=== PATIENT | male | born 1970 | race Caucasian/White ===

== ENCOUNTER 2016-12-07 08:50 | Inpatient (IN) | payer SELFPAY ==
[~2016-12-07] VITALS: Ht 188 cm; Wt 89.9 kg
[2016-12-07] VITALS (8 sets, daily range): BP systolic 122–146; BP diastolic 72–87; PULSE 95–125; RESP 16–24; TEMP 97.3–99.5; O2SAT 91–100
[2016-12-07] MEDS ORDERED: RESP: BUDESONIDE 0.5 MG/2 ML NEB NEB ONE (09:15)
[2016-12-07] MEDS ORDERED: methylPREDNISolone SOD SUCC 125 MG/2 ML VIAL IVP ONE (09:15)
[2016-12-07] MEDS: RESP: ALBUTEROL 2.5 MG/IPRATROPIUM 0.5 MG NEB (SCH) INH ×2 (09:24→09:25)
[2016-12-07 09:25] LABS: AUTOMATED NEUTROPHIL # 9.8 TH/MM3 (1.8-7.7); BASOPHIL # 0.1 TH/MM3 (0-0.2); BASOPHIL % 0.5 % (0.0-2.0); EOSINOPHIL # 0.4 TH/MM3 (0-0.4); EOSINOPHIL % 3.4 % (0.0-4.0); HEMATOCRIT 44.3 % (39.0-51.0); HEMO FLAGS DIFF FINAL; LYMPH % 11.9 % (9.0-44.0); LYMPHOCYTE # 1.5 TH/MM3 (1.0-4.8); MEAN CELL VOLUME 91.6 FL (80.0-100.0); MEAN CORPUSCULAR HGB CONC 33.8 % (32.0-36.0); MONO % 6.3 % (0.0-8.0); NEUT % 77.9 % (16.0-70.0); PLATELET COUNT 220 TH/MM3 (150-450); RED BLOOD COUNT 4.83 MIL/MM3 (4.50-5.90); RED CELL DISTRIBUTION WIDTH 13.5 % (11.6-17.2); WHITE BLOOD COUNT 12.6 TH/MM3 (4.0-11.0)
[2016-12-07] MEDS: SODIUM CHLORIDE 0.9% FLUSH 10 ML FLUSH IVF PRN ×2 (09:26→11:06)
--- NOTE | 2016-12-07 09:32 | RADRPT ---
EXAM DATE/TIME: 12/07/2016 09:13 [facility] COMPARISON: No previous studies available for comparison. INDICATIONS : Short of breath with wheezing, history of asthma. MEDICAL HISTORY : Asthma SURGICAL HISTORY : None. ENCOUNTER: Initial ACUITY: 2 days PAIN SCORE: 0/10 LOCATION: Bilateral chest FINDINGS: A single view of the chest demonstrates the lungs to be symmetrically aerated without evidence of mas s, infiltrate or effusion. The cardiomediastinal contours are unremarkable. Osseous structures are intact. CONCLUSION: No acute disease. There is no evidence of pneumonia. Ismael Eagle MD on December 07, 2016 at 9:30 Board Certified Radiologist. This report was verified electronically.
--- NOTE | 2016-12-07 09:36 | PD ---
HPI Chief Complaint: Respiratory Distress Time Seen by Provider: 09:08 Travel History International Travel<30 days: No Contact w/Intl Traveler<30days: No Traveled to known affect area: No History of Present Illness HPI Patient is a 46-year-old male presenting to the medical evaluation of shortness of breath. Patient reports a history of asthma, he states it's been out of his albuterol inhaler for 12 hours. He states that he has been "fighting this" since then. He reports wheezing, body aches, chills. He denies any nausea, vomiting, abdominal pain, headache. He does not eat normally uses albuterol inhaler often and states his asthma is well-controlled. PFSH Past Medical History Hx Anticoagulant Therapy: No Asthma: Yes Cardiovascular Problems: No Chemotherapy: No Cerebrovascular Accident: No Diabetes: No Respiratory: Yes (ASTHMA) ?: Not Past Surgical History Hysterectomy: No Social History Alcohol Use: Yes Tobacco Use: No Substance Use: No Allergies-Medications (Allergen,Severity, Reaction): Coded Allergies: No Known Allergies (Unverified , 12/07/16) Review of Systems Except as stated in HPI: all other systems reviewed are Neg General / Constitutional: Positive: Fever, Chills HENT: No: Headaches, Lightheadedness Cardiovascular: No: Chest Pain or Discomfort Respiratory: Positive: Cough, Shortness of Breath, Wheezing, Pleuritic Pain Gastrointestinal: No: Nausea, Vomiting Musculoskeletal: Positive: Myalgias Physical Exam Narrative GENERAL: Well-developed, well-nourished alert male. SKIN: Warm and dry. HEAD: Atraumatic. Normocephalic. EYES: Pupils equal and round. No scleral icterus. No injection or drainage. ENT: No nasal bleeding or discharge. Mucous membranes pink and moist. NECK: Trachea midline. No JVD. CARDIOVASCULAR: Tachycardic. RESPIRATORY: Tachypneic, diffuse expiratory wheezes noted. GASTROINTESTINAL: Abdomen soft, non-tender, nondistended. Hepatic and splenic margins not palpable. MUSCULOSKELETAL: Extremities without clubbing, cyanosis, or edema. No obvious deformities. NEUROLOGICAL: Awake and alert. No obvious cranial nerve deficits. Motor grossly within normal limits. Five out of 5 muscle strength in the arms and legs. Normal speech. PSYCHIATRIC: Appropriate mood and affect; insight and judgment normal. Data Data Last Documented VS Vital Signs Date Time Temp Pulse Resp B/P (MAP) Pulse Ox O2 Delivery O2 Flow Rate FiO2 12/07/16 09:10 130 24 99 Non-Rebreather 10.00 12/07/16 09:10 122/80 (94) 12/07/16 08:52 99.5 Orders Orders Complete Blood Count With Diff (12/07/16 09:07) Comprehensive Metabolic Panel (12/07/16 09:07) Chest, Single Ap (12/07/16 09:07) Ecg Monitoring (12/07/16 09:07) Iv Access Insert/Monitor (12/07/16 09:07) Oximetry (12/07/16 09:07) Oxygen Administration (12/07/16 09:07) Methylprednisolone So Succ Inj (Solumedr (12/07/16 09:15) Albuterol-Ipratropium Neb (Duoneb Neb) (12/07/16 09:15) Sodium Chloride 0.9% Flush (Ns Flush) (12/07/16 09:15) Budesonide Neb (Pulmicort Respule Neb) (12/07/16 09:15) Blood Culture (12/07/16 09:08) Lactic Acid (12/07/16 09:08) Ct Pulmonary Angiogram (12/07/16 ) Azithromycin Inj (Zithromax Inj) (12/07/16 10:15) Act Partial Throm Time (Ptt) (12/07/16 10:03) Prothrombin Time / Inr (Pt) (12/07/16 10:03) Troponin I (12/07/16 10:03) Ckmb (Isoenzyme) Profile (12/07/16 10:03) Iohexol 350 Inj (Omnipaque 350 Inj) (12/07/16 10:28) Sodium Chlor 0.9% 1000 Ml Inj (Ns 1000 M (12/07/16 11:00) Ceftriaxone Inj (Rocephin Inj) (12/07/16 10:49) Admit Order (Ed Use Only) (12/07/16 11:50) Labs Laboratory Tests Test 12/07/16 09:06 12/07/16 09:12 12/07/16 10:15 White Blood Count 12.6 TH/MM3 Red Blood Count 4.83 MIL/MM3 Hemoglobin 15.0 GM/DL Hematocrit 44.3 % Mean Corpuscular Volume 91.6 FL Mean Corpuscular Hemoglobin 31.0 PG Mean Corpuscular Hemoglobin Concent 33.8 % Red Cell Distribution Width 13.5 % Platelet Count 220 TH/MM3 Mean Platelet Volume 8.2 FL Neutrophils (%) (Auto) 77.9 % Lymphocytes (%) (Auto) 11.9 % Monocytes (%) (Auto) 6.3 % Eosinophils (%) (Auto) 3.4 % Basophils (%) (Auto) 0.5 % Neutrophils # (Auto) 9.8 TH/MM3 Lymphocytes # (Auto) 1.5 TH/MM3 Monocytes # (Auto) 0.8 TH/MM3 Eosinophils # (Auto) 0.4 TH/MM3 Basophils # (Auto) 0.1 TH/MM3 CBC Comment DIFF FINAL Differential Comment Blood Urea Nitrogen 10 MG/DL Creatinine 0.93 MG/DL Random Glucose 96 MG/DL Total Protein 8.2 GM/DL Albumin 3.9 GM/DL Calcium Level 8.9 MG/DL Alkaline Phosphatase 81 U/L Aspartate Amino Transf (AST/SGOT) 12 U/L Alanine Aminotransferase (ALT/SGPT) 19 U/L Total Bilirubin 0.5 MG/DL Sodium Level 141 MEQ/L Potassium Level 3.9 MEQ/L Chloride Level 107 MEQ/L Carbon Dioxide Level 27.6 MEQ/L Anion Gap 6 MEQ/L Estimat Glomerular Filtration Rate 87 ML/MIN Lactic Acid Level 2.3 mmol/L Prothrombin Time 10.8 SEC Prothromb Time International Ratio 1.0 RATIO Activated Partial Thromboplast Time 25.7 SEC MDM Medical Decision Making Medical Screen Exam Complete: Yes Emergency Medical Condition: Yes Interpretation(s) Last Impressions Chest X-Ray 12/07/16 0907 Signed Impressions: Service Date/Time: Wednesday, December 07, 2016 09:13 - CONCLUSION: No acute disease. There is no evidence of pneumonia. Ismael Eagle MD CT Angiography 12/07/16 0000 Signed Impressions: Service Date/Time: Wednesday, December 07, 2016 10:25 - CONCLUSION: 1. No evidence of pulmonary embolism. 2. Focal patchy opacity within the right lower lobe consistent with probable pneumonia. 3. Thin-walled cavitary lesion within the right lower lobe which is likely benign. 4. Mild aneurysmal dilatation of the ascending thoracic aorta measuring 3.6 cm AP by 3.7 cm transverse Jw Olivares MD Laboratory Tests Test 12/07/16 09:06 12/07/16 09:12 12/07/16 10:15 White Blood Count 12.6 TH/MM3 Red Blood Count 4.83 MIL/MM3 Hemoglobin 15.0 GM/DL Hematocrit 44.3 % Mean Corpuscular Volume 91.6 FL Mean Corpuscular Hemoglobin 31.0 PG Mean Corpuscular Hemoglobin Concent 33.8 % Red Cell Distribution Width 13.5 % Platelet Count 220 TH/MM3 Mean Platelet Volume 8.2 FL Neutrophils (%) (Auto) 77.9 % Lymphocytes (%) (Auto) 11.9 % Monocytes (%) (Auto) 6.3 % Eosinophils (%) (Auto) 3.4 % Basophils (%) (Auto) 0.5 % Neutrophils # (Auto) 9.8 TH/MM3 Lymphocytes # (Auto) 1.5 TH/MM3 Monocytes # (Auto) 0.8 TH/MM3 Eosinophils # (Auto) 0.4 TH/MM3 Basophils # (Auto) 0.1 TH/MM3 CBC Comment DIFF FINAL Differential Comment Blood Urea Nitrogen 10 MG/DL Creatinine 0.93 MG/DL Random Glucose 96 MG/DL Total Protein 8.2 GM/DL Albumin 3.9 GM/DL Calcium Level 8.9 MG/DL Alkaline Phosphatase 81 U/L Aspartate Amino Transf (AST/SGOT) 12 U/L Alanine Aminotransferase (ALT/SGPT) 19 U/L Total Bilirubin 0.5 MG/DL Sodium Level 141 MEQ/L Potassium Level 3.9 MEQ/L Chloride Level 107 MEQ/L Carbon Dioxide Level 27.6 MEQ/L Anion Gap 6 MEQ/L Estimat Glomerular Filtration Rate 87 ML/MIN Lactic Acid Level 2.3 mmol/L Prothrombin Time 10.8 SEC Prothromb Time International Ratio 1.0 RATIO Activated Partial Thromboplast Time 25.7 SEC Vital Signs Date Time Temp Pulse Resp B/P (MAP) Pulse Ox O2 Delivery O2 Flow Rate FiO2 12/07/16 09:10 130 24 99 Non-Rebreather 10.00 12/07/16 09:10 99 Non-Rebreather 10.00 12/07/16 09:10 115 20 122/80 (94) 99 Non-Rebreather 10.00 12/07/16 08:52 99.5 125 24 143/87 (105) 91 Differential Diagnosis Asthma exacerbation versus bronchitis versus pneumonia versus less likely PE versus other Narrative Course Patient is a 46-year-old male that presented emergent evaluation of shortness of breath and wheezing that started approximately 12 hours prior to arrival. The patient was tachypneic and tachycardic with a heart rate in the 120s to 130s. He was started on DuoNeb was as well as budesonide nebulizer treatments. He was given 125 of Solu-Medrol 1 L of IV fluids. Labs and imaging ordered and pending. Initial chest x-ray showed no acute disease. CBC with elevated white count of 12.6 with left shift Lactic acid is 2.3 EKG shows sinus tachycardia with a rate in 140s CT pulmonary angiogram was ordered due to persistent tachycardia and tachypnea. CTA shows a developing right lower lobe pneumonia with a cavitary lesion in the right lung base likely benign. Patient was then started on antibiotics empirically including azithromycin and Rocephin IV. He was given a second dose of IV fluids. [facility] paged for admission. Discussed with Dr. Hernandez, ABG ordered. Patient was taken off of nonrebreather and placed on 4 L via nasal cannula, patient O2 sats are 97-99%. Sepsis Criteria SIRS Criteria (2 or more): Heart rate over 90, RR > 20 or PaCO2 < 32, WBC > 85945, < 4000 or > 10% bands Sepsis Criteria (SIRS+source): Infect source susp/known Severe Sepsis (+one): Lactate >2 Criteria Outcome: Meets severe sepsis criteria Diagnosis Primary Impression: Pneumonia Qualified Codes: J18.1 - Lobar pneumonia, unspecified organism Admitting Information Admitting Physician Requests: Admit Condition: Stable Claire Singleton Dec 07, 2016 09:36
[2016-12-07 09:43] LABS: ANION GAP 6 MEQ/L (5-15); AST (GOT) 12 U/L (15-37); BICARBONATE 27.6 MEQ/L (21.0-32.0); BLOOD UREA NITROGEN 10 MG/DL (7-18); CHLORIDE 107 MEQ/L (98-107); GLOMERULAR FILTRATION RATE 87 ML/MIN (>89); POTASSIUM 3.9 MEQ/L (3.5-5.1); SODIUM (NA) 141 MEQ/L (136-145)
[2016-12-07 09:44] LABS: ALT (GPT) 19 U/L (12-78)
[2016-12-07 09:47] LABS: ALKALINE PHOSPHATASE 81 U/L (45-117); TOTAL BILIRUBIN ADULT 0.5 MG/DL (0.2-1.0)
[2016-12-07] MEDS ORDERED: AZITHROMYCIN INJ 500 MG in SODIUM CHLOR 0.9% 250 ML INJ 250 ML IV ONE (10:15)
[2016-12-07] MEDS ORDERED: IOHEXOL 350 MG/ML 10 ML VIAL (for RAD DIAG) IVCONTRAST ONE (10:28)
[2016-12-07 10:38] LABS: PROTHROMBIN TIME - PATIENT 10.8 SEC (9.8-11.6)
[2016-12-07 10:41] LABS: APTT (PATIENT) 25.7 SEC (24.3-30.1)
--- NOTE | 2016-12-07 10:42 | RADRPT ---
EXAM DATE/TIME: 12/07/2016 10:25 [facility] COMPARISON: CHEST SINGLE AP, December 07, 2016, 9:13. INDICATIONS : Shortness of breath since yesterday. IV CONTRAST: 75 cc Omnipaque 350 (iohexol) IV RADIATION DOSE: 23.28 CTDIvol (mGy) MEDICAL HISTORY : None SURGICAL HISTORY : None. ENCOUNTER: Initial ACUITY: 1 day PAIN SCALE: 0/10 LOCATION: chest TECHNIQUE: Volumetric scanning of the chest was performed using a pulmonary embolism protocol MIP images were re constructed. Using automated exposure control and adjustment of the mA and/or kV according to patien t size, radiation dose was kept as low as reasonably achievable to obtain optimal diagnostic quality images. DICOM format image data is available electronically for review and comparison. Follow-up recommendations for detected pulmonary nodules are based at a minimum on nodule size and pa tient risk factors according to Fleischner Society Guidelines. FINDINGS: PULMONARY ARTERIES: No filling defects are seen in the pulmonary arteries through the segmental level. LUNGS: Patchy opacities within the right lower lobe consistent with probable pneumonia. Clinical correlation is recommended. Thin-walled cavitary lesion is noted within the right lung base which is likely sarthak gn. No pulmonary mass or nodule is noted. PLEURAE: There is no pleural thickening or pleural effusion. MEDIASTINUM: There is good visualization of the great vessels of the middle mediastinum. No evidence of mediastin al or hilar adenopathy/mass. There is mild aneurysmal dilatation of the ascending thoracic aorta natalie uring 3.6 cm AP by 3.7 cm transverse. MUSCULOSKELETAL: Within normal limits for patient age. MISCELLANEOUS: The visualized upper abdominal organs demonstrate no acute abnormality. CONCLUSION: 1. No evidence of pulmonary embolism. 2. Focal patchy opacity within the right lower lobe consistent with probable pneumonia. 3. Thin-walled cavitary lesion within the right lower lobe which is likely benign. 4. Mild aneurysmal dilatation of the ascending thoracic aorta measuring 3.6 cm AP by 3.7 cm transvers e Jw Olivares MD on December 07, 2016 at 10:35 Board Certified Radiologist. This report was verified electronically.
[2016-12-07] MEDS ORDERED: cefTRIAXone INJ 2,000 MG in SODIUM CHLORIDE 0.9% INJ 100 ML IV STA (10:49)
[2016-12-07] MEDS ORDERED: SODIUM CHLOR 0.9% 1000 ML INJ 1,000 ML IV ONE (11:00)
[2016-12-07 13:25] LABS: BLOOD GAS BASE EXCESS -0.1 mmol/L (-2-2); BLOOD GAS HCO3 24 mmol/L (22-26); BLOOD GAS METHEMOGLOBIN 0.7 % (0-2); BLOOD GAS O2 HGB SATURATION 92 % (90-100); BLOOD GAS OXYGEN CONTENT 17.1 Vol % (12.0-20.0); BLOOD GAS PCO2 41 mmHg (38-42); BLOOD GAS PO2 65 mmHG (61-120); BLOOD GAS TOTAL HGB 13.3 G/DL (12.0-16.0); CRITICAL VALUE NO; LITER FLOW 4 L/M; OXYGEN DEVICE NASAL CANNULA; TEMP CORR TO 98.6
[2016-12-07 13:26] LABS: DRAW SITE RT RADIAL; NUMBER OF ARTERIAL PUNCTURES 1; STAT YES; ULNAR PULSE PRESENT
[2016-12-07] MEDS ORDERED: SODIUM CHLORIDE 0.9% FLUSH 10 ML FLUSH IV FLUSH PRN (13:45)
[2016-12-07] MEDS ORDERED: ENOXAPARIN SODIUM 40 MG/0.4 ML SYRINGE SQ SCH (13:45)
[2016-12-07] MEDS ORDERED: TUBERCULIN, PPD 5 UNITS/0.1 ML SYRINGE I-DERMAL ONE (13:45)
[2016-12-07] MEDS ORDERED: guaiFENesin/DEXTROMETHORPHAN 200 MG/20 MG/10 ML CUP PO PRN (13:45)
[2016-12-07] MEDS ORDERED: ONDANSETRON HCL 4 MG/2 ML VIAL IV PRN (13:45)
--- NOTE | 2016-12-07 14:29 | HHI.HP ---
[facility] [place] No Primary Care Physician Admission Diagnosis PNEUMONIA, SEPSIS Diagnoses: Travel History International Travel<30 Days: No Contact w/Intl Traveler <30 Da: No Traveled to Known Affected Are: No History of Present Illness 46-year-old male with past medical history of asthma presents today with worsening shortness of breath, cough, fevers and chills. Patient states that it all started yesterday morning. He started coughing and thought he had a cold. He states he is living in a detention at this time and there are couple times with similar symptoms. He has a history of asthma. He started wheezing and having chest tightness. He never checked his temperature however he was very hot and he had chills. He is unable to cough up sputum however he has a dry cough. He gets a headache with never he coughs however it's improved. Denies any nausea vomiting, abdominal pain, sore throat or runny nose. Otherwise, he has no other complaints. Review of Systems Except as stated in HPI: all other systems reviewed are Neg Past Family Social History Past Medical History Asthma Past Surgical History None Allergies: Coded Allergies: No Known Allergies (Unverified , 12/07/16) Family History Mother possibly from Alzheimer's and father from prostate cancer Social History States that he smokes very rarely. Drinks about 3 beers a week. 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 He denies any illegal drug use Physical Exam Vital Signs Vital Signs Date Time Temp Pulse Resp B/P (MAP) Pulse Ox O2 Delivery O2 Flow Rate FiO2 12/07/16 12:04 95 16 100 Non-Rebreather 10.00 12/07/16 09:10 130 24 99 Non-Rebreather 10.00 12/07/16 09:10 99 Non-Rebreather 10.00 12/07/16 09:10 115 20 122/80 (94) 99 Non-Rebreather 10.00 12/07/16 08:52 99.5 125 24 143/87 (105) 91 Physical Exam GENERAL: This is a well-nourished, well-developed patient, in no apparent distress. SKIN: No rashes, ecchymoses or lesions. Cool and dry. HEAD: Atraumatic. Normocephalic. No temporal or scalp tenderness. EYES: Pupils equal round and reactive. Extraocular motions intact. No scleral icterus. No injection or drainage. ENT: Nose without drainage. Throat without mild erythema, however no tonsillar hypertrophy or exudate. Uvula midline. Airway patent. NECK: Trachea midline. No cervical lymphadenopathy. Supple, nontender, no meningeal signs. CARDIOVASCULAR: Mildly tachycardic with no murmurs. RESPIRATORY: Expiratory wheezes auscultated throughout. No crackles. Patient did have coughing spells during my exam. Currently on nasal cannula. Earlier was on a nonrebreather at 10 L GASTROINTESTINAL: Abdomen soft, non-tender, nondistended. No guarding. MUSCULOSKELETAL: Extremities without edema. No joint tenderness, effusion, or edema noted. No calf tenderness. Negative Homans sign bilaterally. NEUROLOGICAL: Awake and alert. Cranial nerves II through XII intact. Motor and sensory grossly within normal limits. Five out of 5 muscle strength in all muscle groups. Normal speech. Laboratory Laboratory Tests Test 12/07/16 09:06 12/07/16 09:12 12/07/16 10:15 12/07/16 13:20 White Blood Count 12.6 Red Blood Count 4.83 Hemoglobin 15.0 Hematocrit 44.3 Mean Corpuscular Volume 91.6 Mean Corpuscular Hemoglobin 31.0 Mean Corpuscular Hemoglobin Concent 33.8 Red Cell Distribution Width 13.5 Platelet Count 220 Mean Platelet Volume 8.2 Neutrophils (%) (Auto) 77.9 Lymphocytes (%) (Auto) 11.9 Monocytes (%) (Auto) 6.3 Eosinophils (%) (Auto) 3.4 Basophils (%) (Auto) 0.5 Neutrophils # (Auto) 9.8 Lymphocytes # (Auto) 1.5 Monocytes # (Auto) 0.8 Eosinophils # (Auto) 0.4 Basophils # (Auto) 0.1 CBC Comment DIFF FINAL Differential Comment Blood Urea Nitrogen 10 Creatinine 0.93 Random Glucose 96 Total Protein 8.2 Albumin 3.9 Calcium Level 8.9 Alkaline Phosphatase 81 Aspartate Amino Transf (AST/SGOT) 12 Alanine Aminotransferase (ALT/SGPT) 19 Total Bilirubin 0.5 Sodium Level 141 Potassium Level 3.9 Chloride Level 107 Carbon Dioxide Level 27.6 Anion Gap 6 Estimat Glomerular Filtration Rate 87 Lactic Acid Level 2.3 Prothrombin Time 10.8 Prothromb Time International Ratio 1.0 Activated Partial Thromboplast Time 25.7 Blood Gas Puncture Site RT RADIAL Blood Gas Patient Temperature 98.6 Blood Gas HCO3 24 Blood Gas Base Excess -0.1 Blood Gas Oxygen Saturation 92 Arterial Blood pH 7.39 Arterial Blood Partial Pressure CO2 41 Arterial Blood Partial Pressure O2 65 Arterial Blood Oxygen Content 17.1 Arterial Blood Carboxyhemoglobin 1.0 Arterial Blood Methemoglobin 0.7 Blood Gas Hemoglobin 13.3 Oxygen Delivery Device NASAL CANNULA Blood Gas Liter Flow 4 Date/Time Source Procedure Growth Status 12/07/16 09:12 Blood Peripheral Aerobic Blood Culture Pending Received 12/07/16 09:12 Blood Peripheral Anaerobic Blood Culture Pending Received Result Diagram: 12/07/1606 12/07/1606 Imaging Last Impressions Chest X-Ray 12/07/16 0907 Signed Impressions: Service Date/Time: Wednesday, December 07, 2016 09:13 - CONCLUSION: No acute disease. There is no evidence of pneumonia. Ismael Eagle MD CT Angiography 12/07/16 0000 Signed Impressions: Service Date/Time: Wednesday, December 07, 2016 10:25 - CONCLUSION: 1. No evidence of pulmonary embolism. 2. Focal patchy opacity within the right lower lobe consistent with probable pneumonia. 3. Thin-walled cavitary lesion within the right lower lobe which is likely benign. 4. Mild aneurysmal dilatation of the ascending thoracic aorta measuring 3.6 cm AP by 3.7 cm transverse Jw Olivares MD Caprini VTE Risk Assessment Caprini VTE Risk Assessment: No/Low Risk (score <= 1) Caprini Risk Assessment Model Point Value = 1 Point Value = 2 Point Value = 3 Point Value = 5 Age 41-60 Minor surgery BMI > 25 kg/m2 Swollen legs Varicose veins or History of unexplained or recurrent spontaneous Oral contraceptives or hormone replacement Sepsis (< 1 month) Serious lung disease, including pneumonia (< 1 month) Abnormal pulmonary function Acute myocardial infarction Congestive heart failure (< 1 month) History of inflammatory bowel disease Medical patient at bed rest Age 61-74 Arthroscopic surgery Major open surgery (> 45 min) Laparoscopic surgery (> 45 min) Malignancy Confined to bed (> 72 hours) Immobilizing plaster cast Central venous access Age >= 75 History of VTE Family history of VTE Factor V Leiden Prothrombin [id number] Lupus anticoagulant Anticardiolipin antibodies Elevated serum homocysteine Heparin-induced thrombocytopenia Other congenital or acquired thrombophilia Stroke (< 1 month) Elective arthroplasty Hip, pelvis, or leg fracture Acute spinal cord injury (< 1 month) Prophylaxis Regimen Total Risk Factor Score Risk Level Prophylaxis Regimen 0-1 Low Early ambulation 2 Moderate Order ONE of the following: *Sequential Compression Device (SCD) *Heparin 5000 units SQ BID 3-4 Higher Order ONE of the following medications: *Heparin 5000 units SQ TID *Enoxaparin/Lovenox 40 mg SQ daily (WT < 150 kg, CrCl > 30 mL/min) *Enoxaparin/Lovenox 30 mg SQ daily (WT < 150 kg, CrCl > 10-29 mL/min) *Enoxaparin/Lovenox 30 mg SQ BID (WT < 150 kg, CrCl > 30 mL/min) AND/OR *Sequential Compression Device (SCD) 5 or more Highest Order ONE of the following medications: *Heparin 5000 units SQ TID (Preferred with Epidurals) *Enoxaparin/Lovenox 40 mg SQ daily (WT < 150 kg, CrCl > 30 mL/min) *Enoxaparin/Lovenox 30 mg SQ daily (WT < 150 kg, CrCl > 10-29 mL/min) *Enoxaparin/Lovenox 30 mg SQ BID (WT < 150 kg, CrCl > 30 mL/min) AND *Sequential Compression Device (SCD) Assessment and Plan Assessment and Plan Sepsis/PNA: Patient presented with tachycardia with a heart rate in the 110s, mild leukocytosis with a WBC of 12.6, lactic acid of 2.3. Source: PNA w cavitary lesion. CTA showed no PE however patient does have a cavitary lesion right lower lobe and opacity in the right lower lobe concerning for pneumonia. Patient required a nonrebreather at 10 L. He received a dose of IV Rocephin/ azithromycin/IV Solu-Medrol in the emergency room. His O2 sat improved and now is on 4 L nasal cannula. ABG obtained within normal limits with a pH of 7.39, PCO2 41 and HCO3 24. I will continue IV Rocephin daily and by mouth azithromycin. Encourage use of incentive spirometry every hour while awake. Will consult ID for assistance as pt does have a cavitary legion. blood cx pending. check influenza. PPD ordered. Repeat lactic acid in AM Asthma exacerbation/hypoxia/respiratory failure: Pt did require a non rebreather at 10L initially now has been switched to 4L. Still having coughing spells. I will continue Solu-Medrol 40 mg IV every 6 hours for now then later transitioned to by mouth prednisone. I will schedule DuoNeb treatments every 6 hours and when necessary. continue supplemental oxygen. Tobaccoism: counseled to quit. DVT proph: encourage ambulation/SCD Code Status full Discussed Condition With patient and RN and ER Harmony Mora MD Dec 07, 2016 14:29
[2016-12-07] MEDS ORDERED: RESP: ALBUTEROL 2.5 MG/IPRATROPIUM 0.5 MG NEB (PRN) NEB (14:30)
[2016-12-07] MEDS: methylPREDNISolone SOD SUCC 40 MG/1 ML VIAL IV PUSH SCH (17:53)
[2016-12-07] MEDS: SODIUM CHLORIDE 0.9% FLUSH 10 ML FLUSH IV FLUSH SCH (22:23)
[2016-12-08] VITALS (7 sets, daily range): BP systolic 115–123; BP diastolic 66–76; PULSE 89–112; RESP 17–22; TEMP 96.7–97.5; O2SAT 93–96
[2016-12-08] MEDS: methylPREDNISolone SOD SUCC 40 MG/1 ML VIAL IV PUSH SCH ×4 (01:02→18:03)
[2016-12-08] MEDS: SODIUM CHLORIDE 0.9% FLUSH 10 ML FLUSH IVF PRN (06:21)
[2016-12-08] MEDS: RESP: ALBUTEROL 2.5 MG/IPRATROPIUM 0.5 MG NEB (SCH) NEB ×3 (08:34→21:13)
[2016-12-08] MEDS: SODIUM CHLORIDE 0.9% FLUSH 10 ML FLUSH IV FLUSH SCH (08:41)
[2016-12-08] MEDS: AZITHROMYCIN 250 MG TAB PO SCH (08:41)
[2016-12-08] MEDS: cefTRIAXone INJ 1,000 MG in SODIUM CHLORIDE 0.9% INJ 100 ML IV SCH (11:41)
[2016-12-08 13:13] LABS: CREATINE KINASE 101 U/L (39-308)
[2016-12-08 13:26] LABS: CKMB 0.7 NG/ML (0.5-3.6)
--- NOTE | 2016-12-08 14:44 | HHI.PR ---
Subjective Remarks feels a little bit better, still coughing a lot and still wheezing. no nausea or vomiting Objective Vitals Vital Signs Date Time Temp Pulse Resp B/P (MAP) Pulse Ox O2 Delivery O2 Flow Rate FiO2 12/08/16 12:00 97.2 92 17 115/76 (89) 95 12/08/16 08:53 Nasal Cannula 4.00 12/08/16 08:30 94 Nasal Cannula 4.00 12/08/16 08:00 97.4 89 17 116/71 (86) 96 12/08/16 02:10 95 Nasal Cannula 4.00 12/08/16 00:00 97.3 108 22 123/68 (86) 95 12/07/16 20:00 98.4 98 18 122/72 (89) 94 12/07/16 17:50 97.7 98 18 140/76 (97) 93 12/07/16 17:39 95 Nasal Cannula 4.00 12/07/16 16:26 97 Nasal Cannula 4.00 12/07/16 16:00 97.3 107 19 146/77 (100) 95 I/O 12/07/16 12/07/16 12/07/16 12/08/16 12/08/16 12/08/16 07:00 15:00 23:00 07:00 15:00 23:00 Intake Total 1350 ml 480 ml 100 ml Balance 1350 ml 480 ml 100 ml Intake Oral 480 ml IV Total 1350 ml 100 ml # Voids 1 # Bowel Movements 0 Result Diagram: 12/07/16 0906 12/07/16 0906 Imaging Last Impressions Chest X-Ray 12/07/16 0907 Signed Impressions: Service Date/Time: Wednesday, December 07, 2016 09:13 - CONCLUSION: No acute disease. There is no evidence of pneumonia. Ismael Eagle MD CT Angiography 12/07/16 0000 Signed Impressions: Service Date/Time: Wednesday, December 07, 2016 10:25 - CONCLUSION: 1. No evidence of pulmonary embolism. 2. Focal patchy opacity within the right lower lobe consistent with probable pneumonia. 3. Thin-walled cavitary lesion within the right lower lobe which is likely benign. 4. Mild aneurysmal dilatation of the ascending thoracic aorta measuring 3.6 cm AP by 3.7 cm transverse Jw Olivares MD Objective Remarks GENERAL:sitting up in bed, getting breathing treatment EYES: Extraocular motions intact. No scleral icterus. No injection or drainage. ENT: Nose without drainage. NECK: Trachea midline. CARDIOVASCULAR: Mildly tachycardic with no murmurs. RESPIRATORY: Expiratory wheezes auscultated throughout. No crackles. Currently on nasal cannula. GASTROINTESTINAL: Abdomen soft, non-tender, nondistended. No guarding. MUSCULOSKELETAL: Extremities without edema. No calf tenderness. Negative Homans sign bilaterally. NEUROLOGICAL: Awake and alert. Cranial nerves II through XII intact. Motor and sensory grossly within normal limits. Normal speech. A/P Assessment and Plan Sepsis/PNA: Patient presented with tachycardia with a heart rate in the 110s, mild leukocytosis with a WBC of 12.6, lactic acid of 2.3. Source: PNA w cavitary lesion. CTA showed no PE however patient does have a cavitary lesion right lower lobe and opacity in the right lower lobe concerning for pneumonia. Patient required a nonrebreather at 10 L. He received a dose of IV Rocephin/ azithromycin/IV Solu-Medrol in the emergency room. His O2 sat improved and now is on 4 L nasal cannula. ABG obtained within normal limits with a pH of 7.39, PCO2 41 and HCO3 24. now on IV Rocephin daily and by mouth azithromycin. Encourage use of incentive spirometry every hour while awake. ID consult in place. blood cx neg x 1 day. Influenza still pending. PPD ordered. AM labs not yet available. Asthma exacerbation/hypoxia/respiratory failure: Pt did require a non rebreather at 10L initially now has been switched to 4L. Still having coughing spells.continue Solu-Medrol 40 mg IV every 6 hours for now and continue taper w transition to po prednisone . continue scheduled DuoNeb treatments every 6 hours and when necessary. continue supplemental oxygen. Tobaccoism: counseled to quit. DVT proph: encourage ambulation/SCD Discharge Planning pending further work-up and clinical improvement. Harmony Hernandez MD Dec 08, 2016 14:44
--- NOTE | 2016-12-08 17:17 | PD.ID.CON ---
History of Present Illness Service ID Consult Requested By Dr Hernandez Reason for Consult pulmonary cavitary lesion Primary Care Physician No Primary Care Physician Diagnoses: History of Present Illness 46 yo male with a h/o asthma presented with asthma attack in ER and his CT showed thin-walled cavitary lesion within the right lower lobe which is likely benign along with R lung infiltrate CXR was reportedly negative He had a CXR 2 yrs ago and it was unremarkeble Pt reports negative PPD and HIV test in last December when he was released from detention He reports some greenish phlegm with expectoration Denies weight loss, fever, chills nightsweats denies known exposure to TB PPD was placed today Pt is afebrile but has leukocytosis which got wotrse (however systemic sterroids are prescribed) Review of Systems Except as stated in HPI: all other systems reviewed are Neg Past Family Social History Allergies: Coded Allergies: No Known Allergies (Unverified , 12/07/16) Past Medical History Asthma Past Surgical History None Active Ordered Medications Medications where reviewed in EMR Antibiotics Include: CFTX azithro Family History Mother possibly from Alzheimer's and father from prostate cancer Social History States that he smokes very rarely. Drinks about 3 beers a week. 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 He denies any illegal drug use Physical Exam Vital Signs Vital Signs Date Time Temp Pulse Resp B/P (MAP) Pulse Ox O2 Delivery O2 Flow Rate FiO2 12/08/16 16:00 96.7 112 18 116/66 (83) 95 12/08/16 12:00 97.2 92 17 115/76 (89) 95 12/08/16 08:53 Nasal Cannula 4.00 12/08/16 08:30 94 Nasal Cannula 4.00 12/08/16 08:00 97.4 89 17 116/71 (86) 96 12/08/16 02:10 95 Nasal Cannula 4.00 12/08/16 00:00 97.3 108 22 123/68 (86) 95 12/07/16 20:00 98.4 98 18 122/72 (89) 94 12/07/16 17:50 97.7 98 18 140/76 (97) 93 12/07/16 17:39 95 Nasal Cannula 4.00 Physical Exam CONSTITUTIONAL/GENERAL: This is an adequately nourished patient, in no apparent distress. TUBES/LINES/DRAINS: SKIN: No jaundice, rashes, or lesions. Skin temperature appropriate. Not diaphoretic. HEAD: Atraumatic. Normocephalic. EYES: Pupils equal and round and reactive. Extraocular motions intact. No scleral icterus. No injection or drainage. Fundi not examined. ENT: Hearing grossly normal. Nose without bleeding or purulent drainage. Throat without visible erythema, exudates, masses, or lesions. NECK: Trachea midline. Supple, nontender. No palpable thyroid enlargement or nodularity. CARDIOVASCULAR: Regular rate and rhythm without murmurs, gallops, or rubs. No JVD. Peripheral pulses symmetric. RESPIRATORY/CHEST: Symmetric, unlabored respirations. Clear to auscultation. Breath sounds equal bilaterally. No wheezes, rales, or rhonchi. GASTROINTESTINAL: Abdomen soft, non-tender, nondistended. No hepato-splenomegaly , or palpable masses. No guarding. Bowel sounds present. MUSCULOSKELETAL: Extremities without clubbing, cyanosis, or edema. No joint tenderness or effusion noted. No calf tenderness. No mottling or clubbing. LYMPHATICS: No palpable cervical or supraclavicular adenopathy. NEUROLOGICAL: Awake and alert. Motor and sensory grossly within normal limits. Follows commands. Clear speech. Moves all extremities. PSYCHIATRIC: No obvious anxiety/depression. no apparent hallucinations or other psychotic thought process. Laboratory Date/Time Source Procedure Growth Status 12/07/16 09:12 Blood Peripheral Aerobic Blood Culture - Preliminary NO GROWTH IN 1 DAY Resulted 12/07/16 09:12 Blood Peripheral Anaerobic Blood Culture - Preliminary NO GROWTH IN 1 DAY Resulted Result Diagram: 12/07/1606 12/07/1606 Imaging Last Impressions Chest X-Ray 12/07/16 0907 Signed Impressions: Service Date/Time: Wednesday, December 07, 2016 09:13 - CONCLUSION: No acute disease. There is no evidence of pneumonia. Ismael Eagle MD CT Angiography 12/07/16 0000 Signed Impressions: Service Date/Time: Wednesday, December 07, 2016 10:25 - CONCLUSION: 1. No evidence of pulmonary embolism. 2. Focal patchy opacity within the right lower lobe consistent with probable pneumonia. 3. Thin-walled cavitary lesion within the right lower lobe which is likely benign. 4. Mild aneurysmal dilatation of the ascending thoracic aorta measuring 3.6 cm AP by 3.7 cm transverse Jw Olivares MD Assessment and Plan Assessment and Plan Asthma exacerbation Incidental finding of RLL cavitary lesion + increased risk for TB (recently incarcerated and lives in a care home) PNA cont up to 7 days of abx for PNA, will transytion to oral when ready for dc - obtain sputum for TB and PPD - Dc AFB isolation once negative TB probe further rec's to follow P w/u results and clin progress Rosaura Ramos MD Dec 08, 2016 17:17
[2016-12-08 17:54] LABS: AUTOMATED NEUTROPHIL # 14.8 TH/MM3 (1.8-7.7); BASOPHIL % 0.1 % (0.0-2.0); HEMATOCRIT 40.9 % (39.0-51.0); HEMO FLAGS DIFF FINAL; LYMPHOCYTE # 0.7 TH/MM3 (1.0-4.8); MEAN CORPUSCULAR HEMOGLOBIN 30.1 PG (27.0-34.0); MEAN CORPUSCULAR HGB CONC 32.7 % (32.0-36.0); MONO % 4.5 % (0.0-8.0); NEUT % 91.4 % (16.0-70.0); PLATELET COUNT 213 TH/MM3 (150-450); RED BLOOD COUNT 4.45 MIL/MM3 (4.50-5.90); RED CELL DISTRIBUTION WIDTH 13.9 % (11.6-17.2); WHITE BLOOD COUNT 16.2 TH/MM3 (4.0-11.0)
[2016-12-08 18:14] LABS: BICARBONATE 27.4 MEQ/L (21.0-32.0); POTASSIUM 3.9 MEQ/L (3.5-5.1)
[2016-12-08 21:27] LABS: M. TUBERCULOSIS PCR NOT DETECTED (NOT DETECT)
--- NOTE | 2016-12-08 22:01 | EKG ---
Date Performed: 12/07/2016 Time Performed: 09:57:04 PTAGE: 46 years EKG: SINUS TACHYCARDIA ST DEVIATION AND MODERATE T-WAVE ABNORMALITY ABNORMAL ECG PREVIOUS TRACING : 12/03/2016 11.31 DOCTOR: Shanique Sanon Interpretating Date/Time 12/08/2016 21:59:42
[2016-12-09] VITALS (7 sets, daily range): BP systolic 110–131; BP diastolic 66–82; PULSE 90–121; RESP 18–20; TEMP 96.9–98.7; O2SAT 93–96
[2016-12-09] MEDS: methylPREDNISolone SOD SUCC 40 MG/1 ML VIAL IV PUSH SCH ×4 (00:02→20:10)
[2016-12-09] MEDS: SODIUM CHLORIDE 0.9% FLUSH 10 ML FLUSH IV FLUSH SCH ×3 (00:02→20:11)
[2016-12-09] MEDS: SODIUM CHLORIDE 0.9% FLUSH 10 ML FLUSH IVF PRN (04:43)
[2016-12-09] MEDS: RESP: ALBUTEROL 2.5 MG/IPRATROPIUM 0.5 MG NEB (SCH) NEB ×3 (07:54→20:33)
[2016-12-09] MEDS: AZITHROMYCIN 250 MG TAB PO SCH (08:57)
[2016-12-09] MEDS: cefTRIAXone INJ 1,000 MG in SODIUM CHLORIDE 0.9% INJ 100 ML IV SCH (11:41)
[2016-12-09] MEDS ORDERED: IBUPROFEN 600 MG TAB PO ONE (12:45)
--- NOTE | 2016-12-09 13:47 | HHI.PR ---
Subjective Remarks Pt SOB is improved whenever he stays still but w movement it worsens, still has the cough w some phlegm but improved as well. no nausea or vomiting. wound like some motrin for his headache no CP Objective Vitals Vital Signs Date Time Temp Pulse Resp B/P (MAP) Pulse Ox O2 Delivery O2 Flow Rate FiO2 12/09/16 12:00 96.9 120 19 122/73 (89) 95 12/09/16 09:03 Nasal Cannula 2.00 12/09/16 08:00 97.5 90 20 110/66 (81) 95 12/09/16 07:55 93 Nasal Cannula 1.00 12/09/16 00:48 94 Nasal Cannula 2.00 12/09/16 00:00 97.3 101 18 129/80 (96) 94 12/08/16 21:14 93 Nasal Cannula 1.00 12/08/16 20:00 97.5 93 20 116/74 (88) 93 12/08/16 18:05 93 Nasal Cannula 2.00 12/08/16 16:00 96.7 112 18 116/66 (83) 95 I/O 12/08/16 12/08/16 12/08/16 12/09/16 12/09/16 12/09/16 06:59 14:59 22:59 06:59 14:59 22:59 Intake Total 480 ml 100 ml 1320 ml 480 ml 220 ml Balance 480 ml 100 ml 1320 ml 480 ml 220 ml Intake Oral 480 ml 1320 ml 480 ml 120 ml IV Total 100 ml 100 ml # Voids 1 5 2 # Bowel Movements 0 1 0 Result Diagram: 12/08/16 1738 12/08/16 1738 Imaging Last Impressions Chest X-Ray 12/07/16 0907 Signed Impressions: Service Date/Time: Wednesday, December 07, 2016 09:13 - CONCLUSION: No acute disease. There is no evidence of pneumonia. Ismael Eagle MD CT Angiography 12/07/16 0000 Signed Impressions: Service Date/Time: Wednesday, December 07, 2016 10:25 - CONCLUSION: 1. No evidence of pulmonary embolism. 2. Focal patchy opacity within the right lower lobe consistent with probable pneumonia. 3. Thin-walled cavitary lesion within the right lower lobe which is likely benign. 4. Mild aneurysmal dilatation of the ascending thoracic aorta measuring 3.6 cm AP by 3.7 cm transverse Jw Olivares MD Objective Remarks GENERAL:sitting up in bed, getting breathing treatment EYES: Extraocular motions intact. ENT: Nose without drainage. NECK: Trachea midline. CARDIOVASCULAR: Mildly tachycardic with no murmurs. RESPIRATORY: Expiratory wheezes auscultated throughout. No crackles. Currently on nasal cannula. GASTROINTESTINAL: Abdomen soft, non-tender, nondistended. No guarding. MUSCULOSKELETAL: Extremities without edema. No calf tenderness. Negative Homans sign bilaterally. NEUROLOGICAL: Awake and alert. Cranial nerves II through XII intact. Motor and sensory grossly within normal limits. Normal speech. A/P Assessment and Plan Sepsis/PNA: Patient presented with tachycardia with a heart rate in the 110s, mild leukocytosis with a WBC of 12.6, lactic acid of 2.3. Source: PNA w cavitary lesion. CTA showed no PE however patient does have a cavitary lesion right lower lobe and opacity in the right lower lobe concerning for pneumonia. Patient required a nonrebreather at 10 L. He received a dose of IV Rocephin/ azithromycin/IV Solu-Medrol in the emergency room. His O2 sat improved and now is on 4 L nasal cannula. ABG obtained within normal limits with a pH of 7.39, PCO2 41 and HCO3 24. now on IV Rocephin daily and by mouth azithromycin. Encourage use of incentive spirometry every hour while awake. ID following and recommended continuing abx and treat x 7 days. blood cx neg x 2 day. Influenza ordered but not available. PPD ordered. M tuberculosis DNA/PCR neg. Asthma exacerbation/hypoxia/respiratory failure: Pt did require a non rebreather at 10L initially now has been switched to 4L. Still having coughing spells.change Solu-Medrol 40 mg IV to every 8 hours for now and continue taper w transition to po prednisone . continue scheduled DuoNeb treatments every 6 hours and when necessary. continue supplemental oxygen. Tobaccoism: counseled to quit. DVT proph: encourage ambulation/SCD Discharge Planning consider transitioning him to po steroids in 1-2 days. awaiting final recs from ID once pt's condition improved. Harmony Hernandez MD Dec 09, 2016 13:47
[2016-12-09] MEDS: FLUTICASONE PROPIONATE 50 MCG/ACT 16 GM NASAL SPRAY NASAL SCH (16:33)
[2016-12-09] MEDS ORDERED: SKIN TEST RESULT SCH (18:42)
[2016-12-10] VITALS (7 sets, daily range): BP systolic 126–135; BP diastolic 67–80; PULSE 83–99; RESP 18; TEMP 97.4–98.1; O2SAT 91–96
[2016-12-10] MEDS: SODIUM CHLORIDE 0.9% FLUSH 10 ML FLUSH IVF PRN (04:00)
[2016-12-10] MEDS: methylPREDNISolone SOD SUCC 40 MG/1 ML VIAL IV PUSH SCH ×3 (04:00→20:08)
[2016-12-10] MEDS: RESP: ALBUTEROL 2.5 MG/IPRATROPIUM 0.5 MG NEB (SCH) NEB ×3 (07:46→21:33)
[2016-12-10] MEDS: FLUTICASONE PROPIONATE 50 MCG/ACT 16 GM NASAL SPRAY NASAL SCH (09:00)
[2016-12-10] MEDS: SODIUM CHLORIDE 0.9% FLUSH 10 ML FLUSH IV FLUSH SCH ×2 (09:00→20:08)
[2016-12-10 09:04] LABS: BICARBONATE 26.1 MEQ/L (21.0-32.0); POTASSIUM 4.2 MEQ/L (3.5-5.1)
[2016-12-10 09:08] LABS: AUTOMATED NEUTROPHIL # 9.7 TH/MM3 (1.8-7.7); BASOPHIL % 0.1 % (0.0-2.0); HEMATOCRIT 42.5 % (39.0-51.0); HEMO FLAGS DIFF FINAL; LYMPH % 7.8 % (9.0-44.0); LYMPHOCYTE # 0.8 TH/MM3 (1.0-4.8); MEAN CELL VOLUME 92.3 FL (80.0-100.0); MEAN CORPUSCULAR HEMOGLOBIN 30.5 PG (27.0-34.0); MONO % 2.2 % (0.0-8.0); NEUT % 89.9 % (16.0-70.0); PLATELET COUNT 232 TH/MM3 (150-450); RED BLOOD COUNT 4.61 MIL/MM3 (4.50-5.90); RED CELL DISTRIBUTION WIDTH 13.5 % (11.6-17.2); WHITE BLOOD COUNT 10.8 TH/MM3 (4.0-11.0)
[2016-12-10] MEDS: AZITHROMYCIN 250 MG TAB PO SCH (09:10)
[2016-12-10] MEDS: cefTRIAXone INJ 1,000 MG in SODIUM CHLORIDE 0.9% INJ 100 ML IV SCH (14:45)
--- NOTE | 2016-12-10 15:18 | HHI.PR ---
Subjective Remarks PT feeling better but still has a lot of cough and SOB whenever he moves around. Wheezing improved. No nausea or vomiting Objective Vitals Vital Signs Date Time Temp Pulse Resp B/P (MAP) Pulse Ox O2 Delivery O2 Flow Rate FiO2 12/10/16 12:00 97.5 95 18 128/72 (90) 92 12/10/16 08:00 97.5 83 18 129/67 (87) 91 12/10/16 07:48 92 21 12/10/16 00:00 97.4 99 18 135/80 (98) 92 12/09/16 20:33 93 Nasal Cannula 1.50 12/09/16 20:15 96 Nasal Cannula 2.00 12/09/16 20:00 98.7 121 18 131/82 (98) 96 12/09/16 16:00 98.7 95 20 116/67 (83) 95 I/O 12/09/16 12/09/16 12/09/16 12/10/16 12/10/16 12/10/16 07:00 15:00 23:00 07:00 15:00 23:00 Intake Total 480 ml 340 ml 1500 ml Output Total 1300 ml Balance 480 ml 340 ml 200 ml Intake Oral 480 ml 240 ml 1500 ml IV Total 100 ml Output Urine Total 1300 ml # Voids 2 # Bowel Movements 0 1 Result Diagram: 12/10/16 0801 12/10/16 0801 Imaging Last Impressions Chest X-Ray 12/07/16 0907 Signed Impressions: Service Date/Time: Wednesday, December 07, 2016 09:13 - CONCLUSION: No acute disease. There is no evidence of pneumonia. Ismael Eagle MD CT Angiography 12/07/16 0000 Signed Impressions: Service Date/Time: Wednesday, December 07, 2016 10:25 - CONCLUSION: 1. No evidence of pulmonary embolism. 2. Focal patchy opacity within the right lower lobe consistent with probable pneumonia. 3. Thin-walled cavitary lesion within the right lower lobe which is likely benign. 4. Mild aneurysmal dilatation of the ascending thoracic aorta measuring 3.6 cm AP by 3.7 cm transverse Jw Olivares MD Objective Remarks GENERAL:sitting up in bed EYES: Extraocular motions intact. ENT: Nose without drainage. NECK: Trachea midline. CARDIOVASCULAR: RRR with no murmurs. RESPIRATORY: faint Expiratory wheezes at bases. No crackles. Currently on nasal cannula. GASTROINTESTINAL: Abdomen soft, non-tender, nondistended. No guarding. MUSCULOSKELETAL: Extremities without edema. No calf tenderness. Negative Homans sign bilaterally. NEUROLOGICAL: Awake and alert. Cranial nerves II through XII intact. Motor and sensory grossly within normal limits. Normal speech. A/P Assessment and Plan Sepsis/PNA: Patient presented with tachycardia with a heart rate in the 110s, mild leukocytosis with a WBC of 12.6, lactic acid of 2.3. Source: PNA w cavitary lesion. CTA showed no PE however patient does have a cavitary lesion right lower lobe and opacity in the right lower lobe concerning for pneumonia. Patient required a nonrebreather at 10 L in the ED. He received a dose of IV Rocephin/azithromycin/IV Solu-Medrol in the emergency room. His O2 sat improved and now is on 4 L nasal cannula. ABG obtained within normal limits with a pH of 7.39, PCO2 41 and HCO3 24. now on IV Rocephin daily and by mouth azithromycin. Encourage use of incentive spirometry every hour while awake. ID following and recommended continuing abx and treat x 7 days. blood cx neg x 2 day. Influenza ordered but not available. PPD ordered. M tuberculosis DNA/PCR neg. sputum cultures w heavy normal antonio but not yet finalized Asthma exacerbation/hypoxia/respiratory failure: Pt did require a non rebreather at 10L initially now has been switched to 4L. Still having coughing spells.change Solu-Medrol 40 mg IV to every 8 hours for now and continue taper w transition to po prednisone . continue scheduled DuoNeb treatments every 6 hours and when necessary. continue supplemental oxygen. Tobaccoism: counseled to quit. DVT proph: encourage ambulation/SCD Discharge Planning consider transitioning him to po steroids in 1-2 days. awaiting final recs from ID once pt's condition improved. Harmony Hernandez MD Dec 10, 2016 15:18
[2016-12-10] MEDS: LACTOBACILLUS ACIDOPHILUS 1 GM PACKET PO SCH (18:00)
[2016-12-11] VITALS (7 sets, daily range): BP systolic 117–134; BP diastolic 69–96; PULSE 78–102; RESP 17–20; TEMP 96.1–98.3; O2SAT 92–95
[2016-12-11] MEDS: SODIUM CHLORIDE 0.9% FLUSH 10 ML FLUSH IVF PRN (03:43)
[2016-12-11] MEDS: methylPREDNISolone SOD SUCC 40 MG/1 ML VIAL IV PUSH SCH ×2 (03:43→11:22)
[2016-12-11] MEDS: AZITHROMYCIN 250 MG TAB PO SCH (08:06)
[2016-12-11] MEDS: LACTOBACILLUS ACIDOPHILUS 1 GM PACKET PO SCH ×3 (08:06→17:59)
[2016-12-11] MEDS: SODIUM CHLORIDE 0.9% FLUSH 10 ML FLUSH IV FLUSH SCH ×2 (08:06→20:25)
[2016-12-11] MEDS: FLUTICASONE PROPIONATE 50 MCG/ACT 16 GM NASAL SPRAY NASAL SCH (08:07)
[2016-12-11] MEDS: RESP: ALBUTEROL 2.5 MG/IPRATROPIUM 0.5 MG NEB (SCH) NEB ×3 (08:59→19:46)
[2016-12-11] MEDS: cefTRIAXone INJ 1,000 MG in SODIUM CHLORIDE 0.9% INJ 100 ML IV SCH (11:22)
--- NOTE | 2016-12-11 13:22 | HHI.PR ---
Subjective Remarks still coughing but feeling better. no CP/nausea or vomiting. SOB improving. Objective Vitals Vital Signs Date Time Temp Pulse Resp B/P (MAP) Pulse Ox O2 Delivery O2 Flow Rate FiO2 12/11/16 12:00 97.4 102 17 119/77 (91) 93 12/11/16 09:00 93 Nasal Cannula 2.00 12/11/16 08:14 93 Nasal Cannula 2.00 12/11/16 08:00 96.1 78 17 117/69 (85) 93 12/11/16 00:00 96.5 93 18 134/96 (109) 95 12/10/16 21:34 96 Nasal Cannula 2.00 12/10/16 20:00 95 Nasal Cannula 2.00 12/10/16 20:00 97.4 91 18 130/79 (96) 95 12/10/16 16:00 98.1 87 18 126/75 (92) 94 I/O 12/10/16 12/10/16 12/10/16 12/11/16 12/11/16 12/11/16 07:00 15:00 23:00 07:00 15:00 23:00 Intake Total 1680 ml Balance 1680 ml Intake Oral 1680 ml # Voids 4 3 # Bowel Movements 1 Result Diagram: 12/10/16 0801 12/10/16 0801 Imaging Last Impressions Chest X-Ray 12/07/16 0907 Signed Impressions: Service Date/Time: Wednesday, December 07, 2016 09:13 - CONCLUSION: No acute disease. There is no evidence of pneumonia. Ismael Eagle MD CT Angiography 12/07/16 0000 Signed Impressions: Service Date/Time: Wednesday, December 07, 2016 10:25 - CONCLUSION: 1. No evidence of pulmonary embolism. 2. Focal patchy opacity within the right lower lobe consistent with probable pneumonia. 3. Thin-walled cavitary lesion within the right lower lobe which is likely benign. 4. Mild aneurysmal dilatation of the ascending thoracic aorta measuring 3.6 cm AP by 3.7 cm transverse Jw Olivares MD Objective Remarks GENERAL:sitting up in bed EYES: Extraocular motions intact. ENT: Nose without drainage. NECK: Trachea midline. CARDIOVASCULAR: RRR with no murmurs. RESPIRATORY: faint Expiratory wheezes at bases. No crackles. Currently on nasal cannula. GASTROINTESTINAL: Abdomen soft, non-tender, nondistended. No guarding. MUSCULOSKELETAL: Extremities without edema. NEUROLOGICAL: Awake and alert. Motor and sensory grossly within normal limits. Normal speech. A/P Assessment and Plan Sepsis/PNA: Patient presented with tachycardia with a heart rate in the 110s, mild leukocytosis with a WBC of 12.6, lactic acid of 2.3. Source: PNA w cavitary lesion. CTA showed no PE however patient does have a cavitary lesion right lower lobe and opacity in the right lower lobe concerning for pneumonia. Patient required a nonrebreather at 10 L in the ED. He received a dose of IV Rocephin/azithromycin/IV Solu-Medrol in the emergency room. His O2 sat improved and now is on 2 L nasal cannula continue to titrate oxygen down. Will perform Walk test to see if he requires oxygen. ABG obtained within normal limits with a pH of 7.39, PCO2 41 and HCO3 24. now on IV Rocephin daily and by mouth azithromycin. Encourage use of incentive spirometry every hour while awake. ID following and recommended continuing abx and treat x 7 days. blood cx neg x 2 day. Influenza ordered but not available. PPD ordered. M tuberculosis DNA/PCR neg. sputum cultures w heavy normal antonio but not yet finalized. I have reached to Dr. Ramos and will wait for final recs for possible discharge. Asthma exacerbation/hypoxia/respiratory failure: Pt did require a non rebreather at 10L initially now has been switched to 4L. Still having coughing spells.change Solu-Medrol 40 mg IV to every 8 hours transition to po prednisone . continue scheduled DuoNeb treatments every 6 hours and when necessary. continue supplemental oxygen. Tobaccoism: counseled to quit. DVT proph: encourage ambulation/SCD Discharge Planning Start po prednisone in AM awaiting final recs from ID walk test today CM to assist w d/c planning Harmony Hernandez MD Dec 11, 2016 13:22
[2016-12-12 00:34] VITALS: BP 111/62; PULSE 82; RESP 16; TEMP 98.2; O2SAT 92
[2016-12-12 08:00] VITALS: BP 117/72; PULSE 77; RESP 16; TEMP 97.8; O2SAT 96
[2016-12-12] MEDS: LACTOBACILLUS ACIDOPHILUS 1 GM PACKET PO SCH ×3 (08:52→17:17)
[2016-12-12] MEDS: FLUTICASONE PROPIONATE 50 MCG/ACT 16 GM NASAL SPRAY NASAL SCH (08:52)
[2016-12-12] MEDS: SODIUM CHLORIDE 0.9% FLUSH 10 ML FLUSH IV FLUSH SCH ×2 (08:52→21:00)
[2016-12-12] MEDS: predniSONE 20 MG TAB PO SCH (08:52)
[2016-12-12] MEDS: AZITHROMYCIN 250 MG TAB PO SCH (08:52)
[2016-12-12 10:14] VITALS: O2SAT 96
[2016-12-12] MEDS: cefTRIAXone INJ 1,000 MG in SODIUM CHLORIDE 0.9% INJ 100 ML IV SCH (11:12)
--- NOTE | 2016-12-12 11:46 | HHI.PR ---
Subjective Remarks Still short of breath Needs to use incentive spirometry much more Lives in the [facility] Needs to come off oxygen before discharge Discussed with patient and RN Needs to be aggressive with his incentive spirometry Objective Vitals Vital Signs Date Time Temp Pulse Resp B/P (MAP) Pulse Ox O2 Delivery O2 Flow Rate FiO2 12/12/16 10:14 96 Nasal Cannula 2.00 12/12/16 09:03 96 Nasal Cannula 2.00 12/12/16 08:00 97.8 77 16 117/72 (87) 96 12/12/16 00:34 98.2 82 16 111/62 (78) 92 12/11/16 20:00 Nasal Cannula 2.00 12/11/16 19:46 94 Nasal Cannula 2.00 12/11/16 19:39 97.8 90 20 132/85 (101) 94 12/11/16 16:00 98.3 91 17 120/75 (90) 92 12/11/16 14:40 2.00 12/11/16 12:00 97.4 102 17 119/77 (91) 93 I/O 12/11/16 12/11/16 12/11/16 12/12/16 12/12/16 12/12/16 07:00 15:00 23:00 07:00 15:00 23:00 Intake Total 100 ml 1662 ml Balance 100 ml 1662 ml Intake Oral 1662 ml IV Total 100 ml # Voids 3 6 1 # Bowel Movements 1 Result Diagram: 12/10/16 0801 12/10/16 0801 Other Results Laboratory Tests Test 12/10/16 08:01 12/11/16 03:34 White Blood Count 10.8 TH/MM3 Red Blood Count 4.61 MIL/MM3 Hemoglobin 14.1 GM/DL Hematocrit 42.5 % Mean Corpuscular Volume 92.3 FL Mean Corpuscular Hemoglobin 30.5 PG Mean Corpuscular Hemoglobin Concent 33.0 % Red Cell Distribution Width 13.5 % Platelet Count 232 TH/MM3 Mean Platelet Volume 9.1 FL Neutrophils (%) (Auto) 89.9 % Lymphocytes (%) (Auto) 7.8 % Monocytes (%) (Auto) 2.2 % Eosinophils (%) (Auto) 0.0 % Basophils (%) (Auto) 0.1 % Neutrophils # (Auto) 9.7 TH/MM3 Lymphocytes # (Auto) 0.8 TH/MM3 Monocytes # (Auto) 0.2 TH/MM3 Eosinophils # (Auto) 0.0 TH/MM3 Basophils # (Auto) 0.0 TH/MM3 CBC Comment DIFF FINAL Differential Comment Blood Urea Nitrogen 20 MG/DL Creatinine 0.83 MG/DL Random Glucose 154 MG/DL Calcium Level 9.5 MG/DL Sodium Level 139 MEQ/L Potassium Level 4.2 MEQ/L Chloride Level 104 MEQ/L Carbon Dioxide Level 26.1 MEQ/L Anion Gap 9 MEQ/L Estimat Glomerular Filtration Rate 99 ML/MIN Lactic Acid Level 2.9 mmol/L 2.7 mmol/L Imaging Last Impressions Chest X-Ray 12/07/16 0907 Signed Impressions: Service Date/Time: Wednesday, December 07, 2016 09:13 - CONCLUSION: No acute disease. There is no evidence of pneumonia. Ismael aEgle MD CT Angiography 12/07/16 0000 Signed Impressions: Service Date/Time: Wednesday, December 07, 2016 10:25 - CONCLUSION: 1. No evidence of pulmonary embolism. 2. Focal patchy opacity within the right lower lobe consistent with probable pneumonia. 3. Thin-walled cavitary lesion within the right lower lobe which is likely benign. 4. Mild aneurysmal dilatation of the ascending thoracic aorta measuring 3.6 cm AP by 3.7 cm transverse Jw Olivares MD Objective Remarks GENERAL: Awake alert and oriented talkative and cooperative in mild distress SKIN: Warm and dry. No obvious rashes HEAD: Atraumatic. Normocephalic. EYES: Pupils equal and round. No scleral icterus. No injection or drainage. Extraocular muscles intact ENT: No nasal bleeding or discharge. Mucous membranes pink and moist. Tongue is midline NECK: Trachea midline. No JVD. Neck is supple CARDIOVASCULAR: Regular rate and rhythm. S1-S2 no S3 or S4 no heave or thrill or rub or gallop RESPIRATORY: No accessory muscle use. Coarse breath sounds and rhonchi is bilaterally scattered wheezes. Breath sounds equal bilaterally. GASTROINTESTINAL: Abdomen soft, non-tender, nondistended. Hepatic and splenic margins not palpable. MUSCULOSKELETAL: Extremities without clubbing, cyanosis, or edema. No obvious deformities. NEUROLOGICAL: Awake and alert. No obvious cranial nerve deficits. Motor grossly within normal limits. Five out of 5 muscle strength in the arms and legs. Normal speech. PSYCHIATRIC: Appropriate mood and affect; insight and judgment normal. Medications and IVs Current Medications Methylprednisolone Sodium Succinate (SoluMEDROL INJ) 125 mg ONCE ONCE IVP Last administered on 12/07/16 09:26; Start 12/07/16 at 09:15; Stop 12/07/16 at 09:16; Status DC Albuterol/ Ipratropium (Duoneb Neb) 1 ampule Q15M INH Last administered on 12/07 09:25; Start 12/07/16 at 09:15; Stop 12/07/16 at 09:46; Status DC Sodium Chloride (NS Flush) 2 ml UNSCH PRN IVF FLUSH AFTER USING IV ACCESS Last administered on 12/11/16 03:43; Start 12/07/16 at 09:15 Budesonide (Pulmicort Respule Neb) 0.5 mg ONCE ONCE NEB Last administered on 09:25; Start 12/07/16 at 09:15; Stop 12/07/16 at 09:16; Status DC Azithromycin 500 mg/Sodium Chloride 250 ml @ 250 mls/hr ONCE ONCE IV Last administered on 12/07/16 10:41; Start 12/07/16 at 10:15; Stop 12/07/16 at 11:14 ; Status DC Iohexol (Omnipaque 350 Inj) 75 ml STK-MED ONCE IVCONTRAST Last administered on 12/07/16 10:28; Start 12/07/16 at 10:28; Stop 12/07/16 at 10:29; Status DC Sodium Chloride 1,000 ml @ 999 mls/hr BOLUS ONCE IV Last administered on 12/07 11:05; Start 12/07/16 at 11:00; Stop 12/07/16 at 12:00; Status DC Ceftriaxone Sodium 2000 mg/ Sodium Chloride 100 ml @ 200 mls/hr ONCE STAT IV Last administered on 12/07/16 11:05; Start 12/07/16 at 10:49; Stop 12/07/16 at 11:18; Status DC Sodium Chloride (NS Flush) 2 ml UNSCH PRN IV FLUSH FLUSH AFTER USING IV ACCESS ; Start 12/07/16 at 13:45 Sodium Chloride (NS Flush) 2 ml BID IV FLUSH Last administered on 12/12/16 08: 52; Start 12/07/16 at 21:00 Ceftriaxone Sodium 1000 mg/ Sodium Chloride 100 ml @ 200 mls/hr Q24H IV Last administered on 12/12/16 11:12; Start 12/08/16 at 11:00 Azithromycin (Zithromax) 500 mg DAILY PO Last administered on 12/12/16 08:52; Start 12/08/16 at 09:00 Tuberculin PPD (Ppd Inj) 5 units ONCE ONCE I-DERMAL Last administered on 18:42; Start 12/07/16 at 13:45; Stop 12/07/16 at 15:14; Status DC Ondansetron HCl (Zofran Inj) 4 mg Q6H PRN IV NAUSEA; Start 12/07/16 at 13:45 Guaifenesin/ Dextromethorphan (Robitussin Dm 200-20 Mg/10 ml Liq) 10 ml Q4H PRN PO COUGH; Start 12/07/16 at 13:45 Enoxaparin Sodium (Lovenox Inj) 40 mg Q24H SQ ; Start 12/07/16 at 13:45; Stop at 14:27; Status DC Methylprednisolone Sodium Succinate (SoluMEDROL INJ) 40 mg Q6HR IV PUSH Last administered on 12/09/16 11:41; Start 12/07/16 at 18:00; Stop 12/09/16 at 13:46 ; Status DC Albuterol/ Ipratropium (Duoneb Neb) 1 ampule Q6HR WHILE AWAKE NEB NEB Last administered on 12/11/16 19:46; Start 12/07/16 at 20:00; Stop 12/11/16 at 19:59 ; Status DC Albuterol/ Ipratropium (Duoneb Neb) 1 ampule Q4HR NEB PRN NEB SOB/WHEEZING Last administered on 12/07/16 16:18; Start 12/07/16 at 14:30 Miscellaneous Information (Skin Test Result) 1 Q24H .XX Last administered on 18:19; Start 12/09/16 at 18:42; Stop 12/09/16 at 18:43; Status DC Ibuprofen (Motrin) 600 mg ONCE ONCE PO Last administered on 12/09/16 13:56; Start 12/09/16 at 12:45; Stop 12/09/16 at 12:46; Status DC Fluticasone Propionate (Flonase Jaime Spr) 2 spray DAILY NASAL Last administered on 12/10/16 09:00; Start 12/09/16 at 15:00 Methylprednisolone Sodium Succinate (SoluMEDROL INJ) 40 mg Q8H IV PUSH Last administered on 12/11/16 11:22; Start 12/09/16 at 20:00; Stop 12/11/16 at 13:22 ; Status DC Lactobacillus Acidophilus (Lactinex Pkt) 1 gm TID PO Last administered on 08:52; Start 12/10/16 at 18:00 Prednisone (Deltasone) 40 mg DAILY PO Last administered on 12/12/16 08:52; Start 12/12/16 at 09:00 A/P Problem List: (1) Pneumonia ICD Code: J18.9 - Pneumonia, unspecified organism Status: Acute (2) Homeless ICD Code: Z59.0 - Homelessness (3) [facility] ICD Code: Z59.0 - Homelessness Assessment and Plan Sepsis/PNA: Patient presented with tachycardia with a heart rate in the 110s, mild leukocytosis with a WBC of 12.6, lactic acid of 2.3. Source: PNA w cavitary lesion. CTA showed no PE however patient does have a cavitary lesion right lower lobe and opacity in the right lower lobe concerning for pneumonia. Patient required a nonrebreather at 10 L in the ED. He received a dose of IV Rocephin/azithromycin/IV Solu-Medrol in the emergency room. His O2 sat improved and now is on 2 L nasal cannula continue to titrate oxygen down. Will perform Walk test to see if he requires oxygen. ABG obtained within normal limits with a pH of 7.39, PCO2 41 and HCO3 24. now on IV Rocephin daily and by mouth azithromycin. Encourage use of incentive spirometry every hour while awake. ID following and recommended continuing abx and treat x 7 days. blood cx neg x 2 day. Influenza ordered but not available. PPD ordered. M tuberculosis DNA/PCR neg. sputum cultures w heavy normal antonio but not yet finalized. I have reached to Dr. Ramos and will wait for final recs for possible discharge. Asthma exacerbation/hypoxia/respiratory failure: Pt did require a non rebreather at 10L initially now has been switched to 4L. Still having coughing spells.change Solu-Medrol 40 mg IV to every 8 hours transition to po prednisone . continue scheduled DuoNeb treatments every 6 hours and when necessary. continue supplemental oxygen. Tobaccoism: counseled to quit. NEEDS TO CONTINUE USING THE INCENTIVE SPIROMETRY SINCE HE CANNOT EASILY GO HOME ON OXYGEN DVT proph: encourage ambulation/SCD Discharge Planning Start po prednisone in AM awaiting final recs from ID walk test today CM to assist w d/c planning Problem Qualifiers (1) Pneumonia: Qualified Codes: J18.1 - Lobar pneumonia, unspecified organism Jamison Hernandez DO Dec 12, 2016 11:46
[2016-12-12 12:00] VITALS: BP 121/80; PULSE 102; RESP 20; TEMP 97.5; O2SAT 94
[2016-12-12 16:00] VITALS: BP 107/65; PULSE 84; RESP 18; TEMP 97.8; O2SAT 93
[2016-12-12 19:43] VITALS: BP 105/73; PULSE 65; RESP 20; TEMP 98.4; O2SAT 93
[2016-12-13] VITALS: BP 100/58; PULSE 79; RESP 16; TEMP 97.9; O2SAT 93
[2016-12-13 08:00] VITALS: BP 100/63; PULSE 92; RESP 18; TEMP 97.6; O2SAT 93
[2016-12-13] MEDS: FLUTICASONE PROPIONATE 50 MCG/ACT 16 GM NASAL SPRAY NASAL SCH (09:00)
[2016-12-13] MEDS: AZITHROMYCIN 250 MG TAB PO SCH (09:10)
[2016-12-13] MEDS: LACTOBACILLUS ACIDOPHILUS 1 GM PACKET PO SCH ×3 (09:11→18:16)
[2016-12-13] MEDS: predniSONE 20 MG TAB PO SCH (09:11)
[2016-12-13] MEDS: SODIUM CHLORIDE 0.9% FLUSH 10 ML FLUSH IV FLUSH SCH ×2 (09:12→20:01)
[2016-12-13 10:03] LABS: ALT (GPT) 19 U/L (12-78); ANION GAP 7 MEQ/L (5-15); AST (GOT) 6 U/L (15-37); BICARBONATE 29.2 MEQ/L (21.0-32.0); BLOOD UREA NITROGEN 20 MG/DL (7-18); CHLORIDE 98 MEQ/L (98-107); GLOMERULAR FILTRATION RATE 94 ML/MIN (>89); MAGNESIUM 2.3 MG/DL (1.5-2.5); POTASSIUM 3.8 MEQ/L (3.5-5.1); SODIUM (NA) 134 MEQ/L (136-145)
[2016-12-13 10:12] LABS: ALKALINE PHOSPHATASE 62 U/L (45-117); FREE T4 0.86 NG/DL (0.76-1.46); TOTAL BILIRUBIN ADULT 0.5 MG/DL (0.2-1.0)
[2016-12-13 10:38] LABS: BASOPHIL % 0.2 % (0.0-2.0); EOSINOPHIL # 0.4 TH/MM3 (0-0.4); EOSINOPHIL % 3.9 % (0.0-4.0); HEMATOCRIT 46.5 % (39.0-51.0); LYMPH % 32.2 % (9.0-44.0); LYMPHOCYTE # 2.9 TH/MM3 (1.0-4.8); MEAN CELL VOLUME 92.4 FL (80.0-100.0); MEAN CORPUSCULAR HEMOGLOBIN 30.7 PG (27.0-34.0); MEAN CORPUSCULAR HGB CONC 33.2 % (32.0-36.0); MONO % 7.6 % (0.0-8.0); NEUT % 56.1 % (16.0-70.0); PLATELET COUNT 228 TH/MM3 (150-450); RED BLOOD COUNT 5.03 MIL/MM3 (4.50-5.90); RED CELL DISTRIBUTION WIDTH 13.5 % (11.6-17.2)
[2016-12-13 10:40] LABS: HEMO FLAGS AUTO DIFF
[2016-12-13 11:16] LABS: EOSINOPHILS 2 % (0-4); MYELOCYTES 3 % (0-0); POLYS (SEG NEUTROPHILS) 52 % (16-70); TOXIC VACUOLATION PRESENT (NONE SEEN); WBC DIFF SAMPLE 100
[2016-12-13 11:17] LABS: SCAN/DIFF FINAL DIFF MANUAL
[2016-12-13 12:00] VITALS: BP 104/64; PULSE 105; RESP 16; TEMP 97.3; O2SAT 94
--- NOTE | 2016-12-13 12:37 | HHI.PR ---
Subjective Remarks Still short of breath Needs to use incentive spirometry much more Lives in the [facility] Needs to come off oxygen before discharge Discussed with patient and RN Needs to be aggressive with his incentive spirometry 12-13 BREATHING BETTER OFF OXYGEN STILL LOTS OF COUGH AND CONGESTION FEELING A LITTLE BETTER HAS NO PLACE TO GO AT THIS MOMENT- WAS AT [facility] DC NEXT 24-48 HOURS Objective Vitals Vital Signs Date Time Temp Pulse Resp B/P (MAP) Pulse Ox O2 Delivery O2 Flow Rate FiO2 12/13/16 08:00 97.6 92 18 100/63 (75) 93 12/13/16 00:00 97.9 79 16 100/58 (72) 93 12/12/16 21:44 Nasal Cannula 1.00 21 12/12/16 19:43 98.4 65 20 105/73 (84) 93 12/12/16 16:00 97.8 84 18 107/65 (79) 93 I/O 12/12/16 12/12/16 12/12/16 12/13/16 12/13/16 12/13/16 07:00 15:00 23:00 07:00 15:00 23:00 Intake Total 100 ml 760 ml Balance 100 ml 760 ml Intake Oral 760 ml IV Total 100 ml # Voids 1 5 2 # Bowel Movements 1 Result Diagram: 12/13/16 0856 12/13/16 0906 Other Results Laboratory Tests Test 12/11/16 03:34 12/13/16 08:56 12/13/16 09:06 Lactic Acid Level 2.7 mmol/L White Blood Count 9.0 TH/MM3 Red Blood Count 5.03 MIL/MM3 Hemoglobin 15.4 GM/DL Hematocrit 46.5 % Mean Corpuscular Volume 92.4 FL Mean Corpuscular Hemoglobin 30.7 PG Mean Corpuscular Hemoglobin Concent 33.2 % Red Cell Distribution Width 13.5 % Platelet Count 228 TH/MM3 Mean Platelet Volume 8.2 FL Neutrophils (%) (Auto) 56.1 % Lymphocytes (%) (Auto) 32.2 % Monocytes (%) (Auto) 7.6 % Eosinophils (%) (Auto) 3.9 % Basophils (%) (Auto) 0.2 % Neutrophils # (Auto) 5.0 TH/MM3 Lymphocytes # (Auto) 2.9 TH/MM3 Monocytes # (Auto) 0.7 TH/MM3 Eosinophils # (Auto) 0.4 TH/MM3 Basophils # (Auto) 0.0 TH/MM3 CBC Comment AUTO DIFF Differential Total Cells Counted 100 Neutrophils % (Manual) 52 % Lymphocytes % 40 % Monocytes % 3 % Eosinophils % 2 % Neutrophils # (Manual) 5.0 TH/MM3 Myelocytes 3 % Differential Comment FINAL DIFF MANUAL Toxic Vacuolation PRESENT Blood Urea Nitrogen 20 MG/DL Creatinine 0.87 MG/DL Random Glucose 82 MG/DL Total Protein 7.1 GM/DL Albumin 3.1 GM/DL Calcium Level 8.8 MG/DL Phosphorus Level 3.3 MG/DL Magnesium Level 2.3 MG/DL Alkaline Phosphatase 62 U/L Aspartate Amino Transf (AST/SGOT) 6 U/L Alanine Aminotransferase (ALT/SGPT) 19 U/L Total Bilirubin 0.5 MG/DL Sodium Level 134 MEQ/L Potassium Level 3.8 MEQ/L Chloride Level 98 MEQ/L Carbon Dioxide Level 29.2 MEQ/L Anion Gap 7 MEQ/L Estimat Glomerular Filtration Rate 94 ML/MIN Free Thyroxine 0.86 NG/DL Thyroid Stimulating Hormone 3rd Gen 3.830 uIU/ML Imaging Last Impressions Chest X-Ray 12/07/16 0907 Signed Impressions: Service Date/Time: Wednesday, December 07, 2016 09:13 - CONCLUSION: No acute disease. There is no evidence of pneumonia. Ismael Eagle MD CT Angiography 12/07/16 0000 Signed Impressions: Service Date/Time: Wednesday, December 07, 2016 10:25 - CONCLUSION: 1. No evidence of pulmonary embolism. 2. Focal patchy opacity within the right lower lobe consistent with probable pneumonia. 3. Thin-walled cavitary lesion within the right lower lobe which is likely benign. 4. Mild aneurysmal dilatation of the ascending thoracic aorta measuring 3.6 cm AP by 3.7 cm transverse Jw Olivares MD Objective Remarks GENERAL: Awake alert and oriented talkative and cooperative in mild distress SKIN: Warm and dry. No obvious rashes HEAD: Atraumatic. Normocephalic. EYES: Pupils equal and round. No scleral icterus. No injection or drainage. Extraocular muscles intact ENT: No nasal bleeding or discharge. Mucous membranes pink and moist. Tongue is midline NECK: Trachea midline. No JVD. Neck is supple CARDIOVASCULAR: Regular rate and rhythm. S1-S2 no S3 or S4 no heave or thrill or rub or gallop RESPIRATORY: No accessory muscle use. Coarse breath sounds and rhonchi is bilaterally scattered wheezes. Breath sounds equal bilaterally. GASTROINTESTINAL: Abdomen soft, non-tender, nondistended. Hepatic and splenic margins not palpable. MUSCULOSKELETAL: Extremities without clubbing, cyanosis, or edema. No obvious deformities. NEUROLOGICAL: Awake and alert. No obvious cranial nerve deficits. Motor grossly within normal limits. Five out of 5 muscle strength in the arms and legs. Normal speech. PSYCHIATRIC: Appropriate mood and affect; insight and judgment normal. Medications and IVs Current Medications Methylprednisolone Sodium Succinate (SoluMEDROL INJ) 125 mg ONCE ONCE IVP Last administered on 12/07/16 09:26; Start 12/07/16 at 09:15; Stop 12/07/16 at 09:16; Status DC Albuterol/ Ipratropium (Duoneb Neb) 1 ampule Q15M INH Last administered on 12/07 09:25; Start 12/07/16 at 09:15; Stop 12/07/16 at 09:46; Status DC Sodium Chloride (NS Flush) 2 ml UNSCH PRN IVF FLUSH AFTER USING IV ACCESS Last administered on 12/11/16 03:43; Start 12/07/16 at 09:15 Budesonide (Pulmicort Respule Neb) 0.5 mg ONCE ONCE NEB Last administered on 09:25; Start 12/07/16 at 09:15; Stop 12/07/16 at 09:16; Status DC Azithromycin 500 mg/Sodium Chloride 250 ml @ 250 mls/hr ONCE ONCE IV Last administered on 12/07/16 10:41; Start 12/07/16 at 10:15; Stop 12/07/16 at 11:14 ; Status DC Iohexol (Omnipaque 350 Inj) 75 ml STK-MED ONCE IVCONTRAST Last administered on 12/07/16 10:28; Start 12/07/16 at 10:28; Stop 12/07/16 at 10:29; Status DC Sodium Chloride 1,000 ml @ 999 mls/hr BOLUS ONCE IV Last administered on 12/07 11:05; Start 12/07/16 at 11:00; Stop 12/07/16 at 12:00; Status DC Ceftriaxone Sodium 2000 mg/ Sodium Chloride 100 ml @ 200 mls/hr ONCE STAT IV Last administered on 12/07/16 11:05; Start 12/07/16 at 10:49; Stop 12/07/16 at 11:18; Status DC Sodium Chloride (NS Flush) 2 ml UNSCH PRN IV FLUSH FLUSH AFTER USING IV ACCESS ; Start 12/07/16 at 13:45 Sodium Chloride (NS Flush) 2 ml BID IV FLUSH Last administered on 12/13/16 09: 12; Start 12/07/16 at 21:00 Ceftriaxone Sodium 1000 mg/ Sodium Chloride 100 ml @ 200 mls/hr Q24H IV Last administered on 12/12/16 11:12; Start 12/08/16 at 11:00 Azithromycin (Zithromax) 500 mg DAILY PO Last administered on 12/13/16 09:10; Start 12/08/16 at 09:00 Tuberculin PPD (Ppd Inj) 5 units ONCE ONCE I-DERMAL Last administered on 18:42; Start 12/07/16 at 13:45; Stop 12/07/16 at 15:14; Status DC Ondansetron HCl (Zofran Inj) 4 mg Q6H PRN IV NAUSEA; Start 12/07/16 at 13:45 Guaifenesin/ Dextromethorphan (Robitussin Dm 200-20 Mg/10 ml Liq) 10 ml Q4H PRN PO COUGH; Start 12/07/16 at 13:45 Enoxaparin Sodium (Lovenox Inj) 40 mg Q24H SQ ; Start 12/07/16 at 13:45; Stop at 14:27; Status DC Methylprednisolone Sodium Succinate (SoluMEDROL INJ) 40 mg Q6HR IV PUSH Last administered on 12/09/16 11:41; Start 12/07/16 at 18:00; Stop 12/09/16 at 13:46 ; Status DC Albuterol/ Ipratropium (Duoneb Neb) 1 ampule Q6HR WHILE AWAKE NEB NEB Last administered on 12/11/16 19:46; Start 12/07/16 at 20:00; Stop 12/11/16 at 19:59 ; Status DC Albuterol/ Ipratropium (Duoneb Neb) 1 ampule Q4HR NEB PRN NEB SOB/WHEEZING Last administered on 12/07/16 16:18; Start 12/07/16 at 14:30 Miscellaneous Information (Skin Test Result) 1 Q24H .XX Last administered on 18:19; Start 12/09/16 at 18:42; Stop 12/09/16 at 18:43; Status DC Ibuprofen (Motrin) 600 mg ONCE ONCE PO Last administered on 12/09/16 13:56; Start 12/09/16 at 12:45; Stop 12/09/16 at 12:46; Status DC Fluticasone Propionate (Flonase Jaime Spr) 2 spray DAILY NASAL Last administered on 12/10/16 09:00; Start 12/09/16 at 15:00 Methylprednisolone Sodium Succinate (SoluMEDROL INJ) 40 mg Q8H IV PUSH Last administered on 12/11/16 11:22; Start 12/09/16 at 20:00; Stop 12/11/16 at 13:22 ; Status DC Lactobacillus Acidophilus (Lactinex Pkt) 1 gm TID PO Last administered on 09:11; Start 12/10/16 at 18:00 Prednisone (Deltasone) 40 mg DAILY PO Last administered on 12/13/16 09:11; Start 12/12/16 at 09:00 Urinary Catheter: No Vascular Central Line Catheter: No A/P Problem List: (1) Pneumonia ICD Code: J18.9 - Pneumonia, unspecified organism Status: Acute (2) Homeless ICD Code: Z59.0 - Homelessness (3) Lives in homeless assisted ICD Code: Z59.0 - Homelessness Assessment and Plan Sepsis/PNA: Patient presented with tachycardia with a heart rate in the 110s, mild leukocytosis with a WBC of 12.6, lactic acid of 2.3. Source: PNA w cavitary lesion. CTA showed no PE however patient does have a cavitary lesion right lower lobe and opacity in the right lower lobe concerning for pneumonia. Patient required a nonrebreather at 10 L in the ED. He received a dose of IV Rocephin/azithromycin/IV Solu-Medrol in the emergency room. His O2 sat improved and now is on 2 L nasal cannula continue to titrate oxygen down. Will perform Walk test to see if he requires oxygen. ABG obtained within normal limits with a pH of 7.39, PCO2 41 and HCO3 24. now on IV Rocephin daily and by mouth azithromycin. Encourage use of incentive spirometry every hour while awake. ID following and recommended continuing abx and treat x 7 days. blood cx neg x 2 day. Influenza ordered but not available. PPD ordered. M tuberculosis DNA/PCR neg. sputum cultures w heavy normal antonio but not yet finalized. I have reached to Dr. Ramos and will wait for final recs for possible discharge. Asthma exacerbation/hypoxia/respiratory failure: Pt did require a non rebreather at 10L initially now has been switched to 4L. Still having coughing spells.change Solu-Medrol 40 mg IV to every 8 hours transition to po prednisone . continue scheduled DuoNeb treatments every 6 hours and when necessary. continue supplemental oxygen. WEANED OFF OXYGEN Tobaccoism: counseled to quit. NEEDS TO CONTINUE USING THE INCENTIVE SPIROMETRY SINCE HE CANNOT EASILY GO HOME ON OXYGEN WEANED OFF OXYGEN DVT proph: encourage ambulation/SCD HYPOTHYROIDISM 25MCG PO DAILY SYNTHROID Discharge Planning Start po prednisone in AM awaiting final recs from ID walk test today CM to assist w d/c planning Discharge Planning NEXT 24 TO 48 HOURS Problem Qualifiers (1) Pneumonia: Qualified Codes: J18.1 - Lobar pneumonia, unspecified organism Jamison Hernandez DO Dec 13, 2016 12:37
[2016-12-13] MEDS: cefTRIAXone INJ 1,000 MG in SODIUM CHLORIDE 0.9% INJ 100 ML IV SCH (13:58)
[2016-12-13] MEDS ORDERED: LEVOTHYROXINE SODIUM 25 MCG TAB PO ONE (14:00)
--- NOTE | 2016-12-13 15:53 | HHI.PR ---
Addendum to Inpatient Note Additional Information pt seen around 1430 full note to follow Rosaura Ramos MD Dec 13, 2016 15:53
[2016-12-13 16:00] VITALS: BP 110/64; PULSE 86; RESP 18; TEMP 97.4; O2SAT 95
[2016-12-13 17:07] LABS: HEMOGLOBIN A1b 0.9 %; HEMOGLOBIN LA1C 1.7 %; HEMOGLOBIN P3 3.6 %
[2016-12-13 18:33] LABS: HEMOGLOBIN A1a 1.7 %; HEMOGLOBIN Ao 84.7 %
[2016-12-13 20:00] VITALS: BP 105/61; PULSE 97; RESP 17; TEMP 97.5; O2SAT 94
--- NOTE | 2016-12-13 20:19 | HHI.IDPN ---
Subjective Subjective Remarks better ambulates in hallway with less SOB Antibiotics azithro CFTX Allergies: Coded Allergies: No Known Allergies (Unverified , 12/07/16) Objective . Vital Signs Date Time Temp Pulse Resp B/P (MAP) Pulse Ox O2 Delivery O2 Flow Rate FiO2 12/13/16 16:00 97.4 86 18 110/64 (79) 95 12/13/16 12:00 97.3 105 16 104/64 (77) 94 12/13/16 08:00 97.6 92 18 100/63 (75) 93 12/13/16 00:00 97.9 79 16 100/58 (72) 93 12/12/16 21:44 Nasal Cannula 1.00 21 12/13/16 12/13/16 12/14/16 15:00 23:00 07:00 Intake Total 1800 ml Balance 1800 ml Intake Oral 1800 ml # Voids 4 # Bowel Movements 1 . Laboratory Tests Test 12/13/16 08:56 White Blood Count 9.0 TH/MM3 Red Blood Count 5.03 MIL/MM3 Hemoglobin 15.4 GM/DL Hematocrit 46.5 % Mean Corpuscular Volume 92.4 FL Mean Corpuscular Hemoglobin 30.7 PG Mean Corpuscular Hemoglobin Concent 33.2 % Red Cell Distribution Width 13.5 % Platelet Count 228 TH/MM3 Mean Platelet Volume 8.2 FL Neutrophils (%) (Auto) 56.1 % Lymphocytes (%) (Auto) 32.2 % Monocytes (%) (Auto) 7.6 % Eosinophils (%) (Auto) 3.9 % Basophils (%) (Auto) 0.2 % Neutrophils # (Auto) 5.0 TH/MM3 Lymphocytes # (Auto) 2.9 TH/MM3 Monocytes # (Auto) 0.7 TH/MM3 Eosinophils # (Auto) 0.4 TH/MM3 Basophils # (Auto) 0.0 TH/MM3 CBC Comment AUTO DIFF Differential Total Cells Counted 100 Neutrophils % (Manual) 52 % Lymphocytes % 40 % Monocytes % 3 % Eosinophils % 2 % Neutrophils # (Manual) 5.0 TH/MM3 Myelocytes 3 % Differential Comment FINAL DIFF MANUAL Toxic Vacuolation PRESENT Laboratory Tests Test 12/13/16 09:06 Blood Urea Nitrogen 20 MG/DL Creatinine 0.87 MG/DL Random Glucose 82 MG/DL Total Protein 7.1 GM/DL Albumin 3.1 GM/DL Calcium Level 8.8 MG/DL Phosphorus Level 3.3 MG/DL Magnesium Level 2.3 MG/DL Alkaline Phosphatase 62 U/L Aspartate Amino Transf (AST/SGOT) 6 U/L Alanine Aminotransferase (ALT/SGPT) 19 U/L Total Bilirubin 0.5 MG/DL Sodium Level 134 MEQ/L Potassium Level 3.8 MEQ/L Chloride Level 98 MEQ/L Carbon Dioxide Level 29.2 MEQ/L Anion Gap 7 MEQ/L Estimat Glomerular Filtration Rate 94 ML/MIN Hemoglobin A1c 5.8 % Free Thyroxine 0.86 NG/DL Thyroid Stimulating Hormone 3rd Gen 3.830 uIU/ML Imaging Last Impressions Chest X-Ray 12/07/16 0907 Signed Impressions: Service Date/Time: Wednesday, December 07, 2016 09:13 - CONCLUSION: No acute disease. There is no evidence of pneumonia. Ismael Eagle MD CT Angiography 12/07/16 0000 Signed Impressions: Service Date/Time: Wednesday, December 07, 2016 10:25 - CONCLUSION: 1. No evidence of pulmonary embolism. 2. Focal patchy opacity within the right lower lobe consistent with probable pneumonia. 3. Thin-walled cavitary lesion within the right lower lobe which is likely benign. 4. Mild aneurysmal dilatation of the ascending thoracic aorta measuring 3.6 cm AP by 3.7 cm transverse Jw Olivares MD Physical Exam CONSTITUTIONAL/GENERAL: This is an adequately nourished patient, in no apparent distress. TUBES/LINES/DRAINS: CARDIOVASCULAR: Regular rate and rhythm without murmurs, gallops, or rubs. No JVD. Peripheral pulses symmetric. RESPIRATORY/CHEST: Symmetric, unlabored respirations. Scattred end- expiratory to auscultation. GASTROINTESTINAL: Abdomen soft, non-tender, nondistended. No hepato-splenomegaly , or palpable masses. No guarding. Bowel sounds present. MUSCULOSKELETAL: Extremities without clubbing, cyanosis, or edema. No joint tenderness or effusion noted. No calf tenderness. No mottling or clubbing. NEUROLOGICAL: Awake and alert. Motor and sensory grossly within normal limits. Follows commands. Clear speech. Moves all extremities. PSYCHIATRIC: calm and cooperative Date/Time Source Procedure Growth Status 12/07/16 09:12 Blood Peripheral Aerobic Blood Culture - Preliminary NO GROWTH IN 1 DAY Resulted 12/07/16 09:12 Blood Peripheral Anaerobic Blood Culture - Preliminary NO GROWTH IN 1 DAY Resulted Result Diagram: 12/07/16 0906 12/07/16 0906 Imaging Last Impressions Chest X-Ray 12/07/16 0907 Signed Impressions: Service Date/Time: Wednesday, December 07, 2016 09:13 - CONCLUSION: No acute disease. There is no evidence of pneumonia. Ismael Eagle MD CT Angiography 12/07/16 0000 Signed Impressions: Service Date/Time: Wednesday, December 07, 2016 10:25 - CONCLUSION: 1. No evidence of pulmonary embolism. 2. Focal patchy opacity within the right lower lobe consistent with probable pneumonia. 3. Thin-walled cavitary lesion within the right lower lobe which is likely benign. 4. Mild aneurysmal dilatation of the ascending thoracic aorta measuring 3.6 cm AP by 3.7 cm transverse Jw Olivares MD Assessment and Plan Assessment and Plan Assessment & Plan Remarks Asthma exacerbation Incidental finding of RLL cavitary lesion - MTB probe negative + increased risk for TB (recently incarcerated and lives in a nursing home) PNA complete 7 days of abx for PNA, (today is day #6) repeat CXR in am will need to follow up with catalyst operator (in-pt if lesion got worse, o/w as o/p) Rosaura Ramos MD Dec 13, 2016 20:19
[2016-12-13] MEDS: ACETAMINOPHEN 325 MG TAB PO PRN (21:47)
[2016-12-14] VITALS (7 sets, daily range): BP systolic 99–121; BP diastolic 56–73; PULSE 80–88; RESP 17–20; TEMP 96.6–97.8; O2SAT 93–95
[2016-12-14] MEDS: LEVOTHYROXINE SODIUM 25 MCG TAB PO SCH (05:49)
--- NOTE | 2016-12-14 05:54 | RADRPT ---
EXAM DATE/TIME: 12/14/2016 05:11 [facility] COMPARISON: CHEST SINGLE AP, December 07, 2016, 9:13. INDICATIONS : Coughing, short of breath, history of asthma MEDICAL HISTORY : asthma SURGICAL HISTORY : None. ENCOUNTER: Subsequent ACUITY: 1 week PAIN SCORE: 0/10 LOCATION: Bilateral chest FINDINGS: A single view of the chest demonstrates the lungs to be symmetrically aerated without evidence of mas s, infiltrate or effusion. The cardiomediastinal contours are unremarkable. Osseous structures are intact. CONCLUSION: Normal examination. Obed Guajardo Jr., MD on December 14, 2016 at 5:52 Board Certified Radiologist. This report was verified electronically.
[2016-12-14 07:51] LABS: AUTOMATED NEUTROPHIL # 6.3 TH/MM3 (1.8-7.7); BASOPHIL % 0.2 % (0.0-2.0); EOSINOPHIL # 0.3 TH/MM3 (0-0.4); EOSINOPHIL % 3.3 % (0.0-4.0); HEMATOCRIT 44.3 % (39.0-51.0); LYMPH % 26.2 % (9.0-44.0); LYMPHOCYTE # 2.6 TH/MM3 (1.0-4.8); MEAN CELL VOLUME 90.7 FL (80.0-100.0); MEAN CORPUSCULAR HEMOGLOBIN 30.4 PG (27.0-34.0); MEAN CORPUSCULAR HGB CONC 33.6 % (32.0-36.0); MONO % 7.5 % (0.0-8.0); NEUT % 62.8 % (16.0-70.0); PLATELET COUNT 238 TH/MM3 (150-450); RED BLOOD COUNT 4.88 MIL/MM3 (4.50-5.90); RED CELL DISTRIBUTION WIDTH 13.3 % (11.6-17.2); WHITE BLOOD COUNT 10.1 TH/MM3 (4.0-11.0)
[2016-12-14 07:55] LABS: HEMO FLAGS AUTO DIFF
[2016-12-14 08:27] LABS: ANION GAP 5 MEQ/L (5-15); BICARBONATE 30.8 MEQ/L (21.0-32.0); BLOOD UREA NITROGEN 22 MG/DL (7-18); CHLORIDE 100 MEQ/L (98-107); GLOMERULAR FILTRATION RATE 99 ML/MIN (>89); MAGNESIUM 2.3 MG/DL (1.5-2.5); POTASSIUM 3.8 MEQ/L (3.5-5.1); SODIUM (NA) 136 MEQ/L (136-145)
[2016-12-14 08:28] LABS: AST (GOT) 9 U/L (15-37)
[2016-12-14 08:34] LABS: ALKALINE PHOSPHATASE 63 U/L (45-117); ALT (GPT) 21 U/L (12-78); TOTAL BILIRUBIN ADULT 0.4 MG/DL (0.2-1.0)
[2016-12-14] MEDS: FLUTICASONE PROPIONATE 50 MCG/ACT 16 GM NASAL SPRAY NASAL SCH (09:00)
[2016-12-14 09:10] LABS: BANDS 3 % (0-6); EOSINOPHILS 2 % (0-4); METAMYELOCYTES 2 % (0-1); MYELOCYTES 1 % (0-0); NEUTROPHIL # MANUAL DIFF 6.4 TH/MM3 (1.8-7.7); PLATELET ESTIMATE SMEAR NORMAL (NORMAL); PLATELET MORPHOLOGY NORMAL (NORMAL); POLYS (SEG NEUTROPHILS) 57 % (16-70); SCAN/DIFF FINAL DIFF MANUAL; WBC DIFF SAMPLE 100
[2016-12-14] MEDS: SODIUM CHLORIDE 0.9% FLUSH 10 ML FLUSH IV FLUSH SCH ×2 (09:16→20:12)
[2016-12-14] MEDS: predniSONE 20 MG TAB PO SCH (09:16)
[2016-12-14] MEDS: LACTOBACILLUS ACIDOPHILUS 1 GM PACKET PO SCH ×3 (09:17→18:19)
[2016-12-14] MEDS: AZITHROMYCIN 250 MG TAB PO SCH (09:17)
--- NOTE | 2016-12-14 12:06 | HHI.PR ---
Subjective Remarks Still short of breath Needs to use incentive spirometry much more Lives in the [facility] Needs to come off oxygen before discharge Discussed with patient and RN Needs to be aggressive with his incentive spirometry 12-13 BREATHING BETTER OFF OXYGEN STILL LOTS OF COUGH AND CONGESTION FEELING A LITTLE BETTER HAS NO PLACE TO GO AT THIS MOMENT- WAS AT [facility] NEXT 24-48 HOURS 12-14 still short of breath still wheezing lots of cough and congestion still A.m. labs Hopefully discharge tomorrow Objective Vitals Vital Signs Date Time Temp Pulse Resp B/P (MAP) Pulse Ox O2 Delivery O2 Flow Rate FiO2 12/14/16 08:00 96.6 80 18 103/62 (76) 93 12/14/16 07:38 93 Nasal Cannula 2.00 12/14/16 00:00 96.9 80 17 102/60 (74) 94 12/13/16 20:38 Nasal Cannula 2.00 12/13/16 20:00 97.5 97 17 105/61 (76) 94 12/13/16 16:00 97.4 86 18 110/64 (79) 95 I/O 12/13/16 12/13/16 12/13/16 12/14/16 12/14/16 12/14/16 06:59 14:59 22:59 06:59 14:59 22:59 Intake Total 1800 ml Balance 1800 ml Intake Oral 1800 ml # Voids 2 4 # Bowel Movements 1 Result Diagram: 12/14/16 0512/14/16725 Other Results Laboratory Tests Test 12/13/16 08:56 12/13/16 09:06 12/14/16 05:26 12/14/16 07:26 White Blood Count 9.0 TH/MM3 10.1 TH/MM3 Red Blood Count 5.03 MIL/MM3 4.88 MIL/MM3 Hemoglobin 15.4 GM/DL 14.9 GM/DL Hematocrit 46.5 % 44.3 % Mean Corpuscular Volume 92.4 FL 90.7 FL Mean Corpuscular Hemoglobin 30.7 PG 30.4 PG Mean Corpuscular Hemoglobin Concent 33.2 % 33.6 % Red Cell Distribution Width 13.5 % 13.3 % Platelet Count 228 TH/MM3 238 TH/MM3 Mean Platelet Volume 8.2 FL 7.9 FL Neutrophils (%) (Auto) 56.1 % 62.8 % Lymphocytes (%) (Auto) 32.2 % 26.2 % Monocytes (%) (Auto) 7.6 % 7.5 % Eosinophils (%) (Auto) 3.9 % 3.3 % Basophils (%) (Auto) 0.2 % 0.2 % Neutrophils # (Auto) 5.0 TH/MM3 6.3 TH/MM3 Lymphocytes # (Auto) 2.9 TH/MM3 2.6 TH/MM3 Monocytes # (Auto) 0.7 TH/MM3 0.8 TH/MM3 Eosinophils # (Auto) 0.4 TH/MM3 0.3 TH/MM3 Basophils # (Auto) 0.0 TH/MM3 0.0 TH/MM3 CBC Comment AUTO DIFF AUTO DIFF Differential Total Cells Counted 100 100 Neutrophils % (Manual) 52 % 57 % Lymphocytes % 40 % 28 % Monocytes % 3 % 7 % Eosinophils % 2 % 2 % Neutrophils # (Manual) 5.0 TH/MM3 6.4 TH/MM3 Myelocytes 3 % 1 % Differential Comment FINAL DIFF MANUAL FINAL DIFF MANUAL Toxic Vacuolation PRESENT Blood Urea Nitrogen 20 MG/DL 22 MG/DL Creatinine 0.87 MG/DL 0.83 MG/DL Random Glucose 82 MG/DL 99 MG/DL Total Protein 7.1 GM/DL 6.6 GM/DL Albumin 3.1 GM/DL 2.9 GM/DL Calcium Level 8.8 MG/DL 8.7 MG/DL Phosphorus Level 3.3 MG/DL 3.1 MG/DL Magnesium Level 2.3 MG/DL 2.3 MG/DL Alkaline Phosphatase 62 U/L 63 U/L Aspartate Amino Transf (AST/SGOT) 6 U/L 9 U/L Alanine Aminotransferase (ALT/SGPT) 19 U/L 21 U/L Total Bilirubin 0.5 MG/DL 0.4 MG/DL Sodium Level 134 MEQ/L 136 MEQ/L Potassium Level 3.8 MEQ/L 3.8 MEQ/L Chloride Level 98 MEQ/L 100 MEQ/L Carbon Dioxide Level 29.2 MEQ/L 30.8 MEQ/L Anion Gap 7 MEQ/L 5 MEQ/L Estimat Glomerular Filtration Rate 94 ML/MIN 99 ML/MIN Hemoglobin A1c 5.8 % Free Thyroxine 0.86 NG/DL Thyroid Stimulating Hormone 3rd Gen 3.830 uIU/ML Band Neutrophils % 3 % Metamyelocytes 2 % Platelet Estimate NORMAL Platelet Morphology Comment NORMAL Red Cell Morphology Comment NORMAL Imaging Last Impressions Chest X-Ray 12/14/16 0600 Signed Impressions: Service Date/Time: Wednesday, December 14, 2016 05:11 - CONCLUSION: Normal examination. Obed Guajardo Jr., MD CT Angiography 12/07/16 0000 Signed Impressions: Service Date/Time: Wednesday, December 07, 2016 10:25 - CONCLUSION: 1. No evidence of pulmonary embolism. 2. Focal patchy opacity within the right lower lobe consistent with probable pneumonia. 3. Thin-walled cavitary lesion within the right lower lobe which is likely benign. 4. Mild aneurysmal dilatation of the ascending thoracic aorta measuring 3.6 cm AP by 3.7 cm transverse Jw Olivares MD Objective Remarks GENERAL: Awake alert and oriented talkative and cooperative in mild distress SKIN: Warm and dry. No obvious rashes HEAD: Atraumatic. Normocephalic. EYES: Pupils equal and round. No scleral icterus. No injection or drainage. Extraocular muscles intact ENT: No nasal bleeding or discharge. Mucous membranes pink and moist. Tongue is midline NECK: Trachea midline. No JVD. Neck is supple CARDIOVASCULAR: Regular rate and rhythm. S1-S2 no S3 or S4 no heave or thrill or rub or gallop RESPIRATORY: No accessory muscle use. Coarse breath sounds and rhonchi is bilaterally scattered wheezes. Breath sounds equal bilaterally. GASTROINTESTINAL: Abdomen soft, non-tender, nondistended. Hepatic and splenic margins not palpable. MUSCULOSKELETAL: Extremities without clubbing, cyanosis, or edema. No obvious deformities. NEUROLOGICAL: Awake and alert. No obvious cranial nerve deficits. Motor grossly within normal limits. Five out of 5 muscle strength in the arms and legs. Normal speech. PSYCHIATRIC: Appropriate mood and affect; insight and judgment normal. Medications and IVs Current Medications Methylprednisolone Sodium Succinate (SoluMEDROL INJ) 125 mg ONCE ONCE IVP Last administered on 12/07/16 09:26; Start 12/07/16 at 09:15; Stop 12/07/16 at 09:16; Status DC Albuterol/ Ipratropium (Duoneb Neb) 1 ampule Q15M INH Last administered on 12/07 09:25; Start 12/07/16 at 09:15; Stop 12/07/16 at 09:46; Status DC Sodium Chloride (NS Flush) 2 ml UNSCH PRN IVF FLUSH AFTER USING IV ACCESS Last administered on 12/11/16 03:43; Start 12/07/16 at 09:15; Stop 12/13/16 at 21:04 ; Status DC Budesonide (Pulmicort Respule Neb) 0.5 mg ONCE ONCE NEB Last administered on 09:25; Start 12/07/16 at 09:15; Stop 12/07/16 at 09:16; Status DC Azithromycin 500 mg/Sodium Chloride 250 ml @ 250 mls/hr ONCE ONCE IV Last administered on 12/07/16 10:41; Start 12/07/16 at 10:15; Stop 12/07/16 at 11:14 ; Status DC Iohexol (Omnipaque 350 Inj) 75 ml STK-MED ONCE IVCONTRAST Last administered on 12/07/16 10:28; Start 12/07/16 at 10:28; Stop 12/07/16 at 10:29; Status DC Sodium Chloride 1,000 ml @ 999 mls/hr BOLUS ONCE IV Last administered on 12/07 11:05; Start 12/07/16 at 11:00; Stop 12/07/16 at 12:00; Status DC Ceftriaxone Sodium 2000 mg/ Sodium Chloride 100 ml @ 200 mls/hr ONCE STAT IV Last administered on 12/07/16 11:05; Start 12/07/16 at 10:49; Stop 12/07/16 at 11:18; Status DC Sodium Chloride (NS Flush) 2 ml UNSCH PRN IV FLUSH FLUSH AFTER USING IV ACCESS ; Start 12/07/16 at 13:45 Sodium Chloride (NS Flush) 2 ml BID IV FLUSH Last administered on 12/14/16 09: 16; Start 12/07/16 at 21:00 Ceftriaxone Sodium 1000 mg/ Sodium Chloride 100 ml @ 200 mls/hr Q24H IV Last administered on 12/13/16 13:58; Start 12/08/16 at 11:00 Azithromycin (Zithromax) 500 mg DAILY PO Last administered on 12/14/16 09:17; Start 12/08/16 at 09:00 Tuberculin PPD (Ppd Inj) 5 units ONCE ONCE I-DERMAL Last administered on 18:42; Start 12/07/16 at 13:45; Stop 12/07/16 at 15:14; Status DC Ondansetron HCl (Zofran Inj) 4 mg Q6H PRN IV NAUSEA; Start 12/07/16 at 13:45 Guaifenesin/ Dextromethorphan (Robitussin Dm 200-20 Mg/10 ml Liq) 10 ml Q4H PRN PO COUGH; Start 12/07/16 at 13:45 Enoxaparin Sodium (Lovenox Inj) 40 mg Q24H SQ ; Start 12/07/16 at 13:45; Stop at 14:27; Status DC Methylprednisolone Sodium Succinate (SoluMEDROL INJ) 40 mg Q6HR IV PUSH Last administered on 12/09/16 11:41; Start 12/07/16 at 18:00; Stop 12/09/16 at 13:46 ; Status DC Albuterol/ Ipratropium (Duoneb Neb) 1 ampule Q6HR WHILE AWAKE NEB NEB Last administered on 12/11/16 19:46; Start 12/07/16 at 20:00; Stop 12/11/16 at 19:59 ; Status DC Albuterol/ Ipratropium (Duoneb Neb) 1 ampule Q4HR NEB PRN NEB SOB/WHEEZING Last administered on 12/07/16 16:18; Start 12/07/16 at 14:30 Miscellaneous Information (Skin Test Result) 1 Q24H .XX Last administered on 18:19; Start 12/09/16 at 18:42; Stop 12/09/16 at 18:43; Status DC Ibuprofen (Motrin) 600 mg ONCE ONCE PO Last administered on 12/09/16 13:56; Start 12/09/16 at 12:45; Stop 12/09/16 at 12:46; Status DC Fluticasone Propionate (Flonase Jaime Spr) 2 spray DAILY NASAL Last administered on 12/10/16 09:00; Start 12/09/16 at 15:00 Methylprednisolone Sodium Succinate (SoluMEDROL INJ) 40 mg Q8H IV PUSH Last administered on 12/11/16 11:22; Start 12/09/16 at 20:00; Stop 12/11/16 at 13:22 ; Status DC Lactobacillus Acidophilus (Lactinex Pkt) 1 gm TID PO Last administered on 09:17; Start 12/10/16 at 18:00 Prednisone (Deltasone) 40 mg DAILY PO Last administered on 12/14/16 09:16; Start 12/12/16 at 09:00 Levothyroxine Sodium (Synthroid) 25 mcg ONCE ONCE PO Last administered on 12/13 15:20; Start 12/13/16 at 14:00; Stop 12/13/16 at 14:12; Status DC Levothyroxine Sodium (Synthroid) 25 mcg DAILY@0600 PO Last administered on 12/14 05:49; Start 12/14/16 at 06:00 Acetaminophen (Tylenol) 650 mg Q4H PRN PO headaches Last administered on 21:47; Start 12/13/16 at 21:00 Urinary Catheter: No Vascular Central Line Catheter: No A/P Problem List: (1) Pneumonia ICD Code: J18.9 - Pneumonia, unspecified organism Status: Acute (2) Homeless ICD Code: Z59.0 - Homelessness (3) Lives in homeless skilled nursing ICD Code: Z59.0 - Homelessness Assessment and Plan Sepsis/PNA: Patient presented with tachycardia with a heart rate in the 110s, mild leukocytosis with a WBC of 12.6, lactic acid of 2.3. Source: PNA w cavitary lesion. CTA showed no PE however patient does have a cavitary lesion right lower lobe and opacity in the right lower lobe concerning for pneumonia. Patient required a nonrebreather at 10 L in the ED. He received a dose of IV Rocephin/azithromycin/IV Solu-Medrol in the emergency room. His O2 sat improved and now is on 2 L nasal cannula continue to titrate oxygen down. Will perform Walk test to see if he requires oxygen. ABG obtained within normal limits with a pH of 7.39, PCO2 41 and HCO3 24. now on IV Rocephin daily and by mouth azithromycin. Encourage use of incentive spirometry every hour while awake. ID following and recommended continuing abx and treat x 7 days. blood cx neg x 2 day. Influenza ordered but not available. PPD ordered. M tuberculosis DNA/PCR neg. sputum cultures w heavy normal antonio but not yet finalized. I have reached to Dr. Ramos and will wait for final recs for possible discharge. Asthma exacerbation/hypoxia/respiratory failure: Pt did require a non rebreather at 10L initially now has been switched to 4L. Still having coughing spells.change Solu-Medrol 40 mg IV to every 8 hours transition to po prednisone . continue scheduled DuoNeb treatments every 6 hours and when necessary. continue supplemental oxygen. WEANED OFF OXYGEN Tobaccoism: counseled to quit. NEEDS TO CONTINUE USING THE INCENTIVE SPIROMETRY SINCE HE CANNOT EASILY GO HOME ON OXYGEN WEANED OFF OXYGEN DVT proph: encourage ambulation/SCD HYPOTHYROIDISM 25MCG PO DAILY SYNTHROID Discharge Planning Start po prednisone in AM awaiting final recs from ID walk test today CM to assist w d/c planning A.m. labs continue antibiotics hopefully home tomorrow Discharge Planning NEXT 24 TO 48 HOURS Problem Qualifiers (1) Pneumonia: Qualified Codes: J18.1 - Lobar pneumonia, unspecified organism Jamison Hernandez DO Dec 14, 2016 12:06
[2016-12-14] MEDS: ACETAMINOPHEN 325 MG TAB PO PRN (20:14)
[2016-12-15] VITALS: BP 117/71; PULSE 81; RESP 17; TEMP 97.2; O2SAT 95
[2016-12-15] MEDS: LEVOTHYROXINE SODIUM 25 MCG TAB PO SCH (06:01)
[2016-12-15 07:14] LABS: AUTOMATED NEUTROPHIL # 6.1 TH/MM3 (1.8-7.7); BASOPHIL % 0.1 % (0.0-2.0); EOSINOPHIL # 0.3 TH/MM3 (0-0.4); EOSINOPHIL % 2.8 % (0.0-4.0); HEMATOCRIT 45.5 % (39.0-51.0); HEMO FLAGS DIFF FINAL; LYMPH % 31.4 % (9.0-44.0); LYMPHOCYTE # 3.2 TH/MM3 (1.0-4.8); MEAN CORPUSCULAR HEMOGLOBIN 30.6 PG (27.0-34.0); MONO % 6.4 % (0.0-8.0); NEUT % 59.3 % (16.0-70.0); PLATELET COUNT 295 TH/MM3 (150-450); RED BLOOD COUNT 5.05 MIL/MM3 (4.50-5.90); RED CELL DISTRIBUTION WIDTH 13.3 % (11.6-17.2); WHITE BLOOD COUNT 10.3 TH/MM3 (4.0-11.0)
[2016-12-15 07:23] LABS: ALT (GPT) 24 U/L (12-78); ANION GAP 6 MEQ/L (5-15); AST (GOT) 10 U/L (15-37); BICARBONATE 30.5 MEQ/L (21.0-32.0); BLOOD UREA NITROGEN 19 MG/DL (7-18); CHLORIDE 101 MEQ/L (98-107); GLOMERULAR FILTRATION RATE 97 ML/MIN (>89); MAGNESIUM 2.4 MG/DL (1.5-2.5); POTASSIUM 4.1 MEQ/L (3.5-5.1); SODIUM (NA) 137 MEQ/L (136-145)
[2016-12-15 07:25] LABS: ALKALINE PHOSPHATASE 63 U/L (45-117); TOTAL BILIRUBIN ADULT 0.4 MG/DL (0.2-1.0)
[2016-12-15 08:00] VITALS: BP 95/69; PULSE 103; RESP 17; TEMP 96.2; O2SAT 91
[2016-12-15 08:54] VITALS: O2SAT 92
[2016-12-15] MEDS: SODIUM CHLORIDE 0.9% FLUSH 10 ML FLUSH IV FLUSH SCH (09:00)
[2016-12-15] MEDS: FLUTICASONE PROPIONATE 50 MCG/ACT 16 GM NASAL SPRAY NASAL SCH (09:00)
[2016-12-15] MEDS: predniSONE 20 MG TAB PO SCH (09:55)
[2016-12-15] MEDS: LACTOBACILLUS ACIDOPHILUS 1 GM PACKET PO SCH (09:55)
--- NOTE | 2016-12-15 10:02 | HHI.PR ---
Subjective Remarks Still short of breath Needs to use incentive spirometry much more Lives in the [facility] Needs to come off oxygen before discharge Discussed with patient and RN Needs to be aggressive with his incentive spirometry 12-13 BREATHING BETTER OFF OXYGEN STILL LOTS OF COUGH AND CONGESTION FEELING A LITTLE BETTER HAS NO PLACE TO GO AT THIS MOMENT- WAS AT [facility] DC NEXT 24-48 HOURS 12-14 still short of breath still wheezing lots of cough and congestion still A.m. labs Hopefully discharge tomorrow 12-15 discharge to home today States he has a place to go can go stay at the [facility] will need follow-up Discussed with patient, RN, and case management Objective Vitals Vital Signs Date Time Temp Pulse Resp B/P (MAP) Pulse Ox O2 Delivery O2 Flow Rate FiO2 12/15/16 08:54 92 21 12/15/16 08:00 96.2 103 17 95/69 (78) 91 12/15/16 00:00 97.2 81 17 117/71 (86) 95 12/14/16 20:00 97.7 85 17 121/73 (89) 94 12/14/16 17:50 95 Nasal Cannula 2.00 12/14/16 16:00 97.6 82 20 111/69 (83) 95 12/14/16 12:00 97.8 88 18 99/56 (70) 93 I/O 12/14/16 12/14/16 12/14/16 12/15/16 12/15/16 12/15/16 07:00 15:00 23:00 07:00 15:00 23:00 Intake Total 1080 ml 240 ml Balance 1080 ml 240 ml Intake Oral 1080 ml 240 ml # Voids 6 2 # Bowel Movements 1 Result Diagram: 12/15/1614 12/15/1614 Other Results Laboratory Tests Test 12/13/16 08:56 12/13/16 09:06 12/14/16 05:26 12/14/16 07:26 White Blood Count 9.0 TH/MM3 10.1 TH/MM3 Red Blood Count 5.03 MIL/MM3 4.88 MIL/MM3 Hemoglobin 15.4 GM/DL 14.9 GM/DL Hematocrit 46.5 % 44.3 % Mean Corpuscular Volume 92.4 FL 90.7 FL Mean Corpuscular Hemoglobin 30.7 PG 30.4 PG Mean Corpuscular Hemoglobin Concent 33.2 % 33.6 % Red Cell Distribution Width 13.5 % 13.3 % Platelet Count 228 TH/MM3 238 TH/MM3 Mean Platelet Volume 8.2 FL 7.9 FL Neutrophils (%) (Auto) 56.1 % 62.8 % Lymphocytes (%) (Auto) 32.2 % 26.2 % Monocytes (%) (Auto) 7.6 % 7.5 % Eosinophils (%) (Auto) 3.9 % 3.3 % Basophils (%) (Auto) 0.2 % 0.2 % Neutrophils # (Auto) 5.0 TH/MM3 6.3 TH/MM3 Lymphocytes # (Auto) 2.9 TH/MM3 2.6 TH/MM3 Monocytes # (Auto) 0.7 TH/MM3 0.8 TH/MM3 Eosinophils # (Auto) 0.4 TH/MM3 0.3 TH/MM3 Basophils # (Auto) 0.0 TH/MM3 0.0 TH/MM3 CBC Comment AUTO DIFF AUTO DIFF Differential Total Cells Counted 100 100 Neutrophils % (Manual) 52 % 57 % Lymphocytes % 40 % 28 % Monocytes % 3 % 7 % Eosinophils % 2 % 2 % Neutrophils # (Manual) 5.0 TH/MM3 6.4 TH/MM3 Myelocytes 3 % 1 % Differential Comment FINAL DIFF MANUAL FINAL DIFF MANUAL Toxic Vacuolation PRESENT Blood Urea Nitrogen 20 MG/DL 22 MG/DL Creatinine 0.87 MG/DL 0.83 MG/DL Random Glucose 82 MG/DL 99 MG/DL Total Protein 7.1 GM/DL 6.6 GM/DL Albumin 3.1 GM/DL 2.9 GM/DL Calcium Level 8.8 MG/DL 8.7 MG/DL Phosphorus Level 3.3 MG/DL 3.1 MG/DL Magnesium Level 2.3 MG/DL 2.3 MG/DL Alkaline Phosphatase 62 U/L 63 U/L Aspartate Amino Transf (AST/SGOT) 6 U/L 9 U/L Alanine Aminotransferase (ALT/SGPT) 19 U/L 21 U/L Total Bilirubin 0.5 MG/DL 0.4 MG/DL Sodium Level 134 MEQ/L 136 MEQ/L Potassium Level 3.8 MEQ/L 3.8 MEQ/L Chloride Level 98 MEQ/L 100 MEQ/L Carbon Dioxide Level 29.2 MEQ/L 30.8 MEQ/L Anion Gap 7 MEQ/L 5 MEQ/L Estimat Glomerular Filtration Rate 94 ML/MIN 99 ML/MIN Hemoglobin A1c 5.8 % Free Thyroxine 0.86 NG/DL Thyroid Stimulating Hormone 3rd Gen 3.830 uIU/ML Band Neutrophils % 3 % Metamyelocytes 2 % Platelet Estimate NORMAL Platelet Morphology Comment NORMAL Red Cell Morphology Comment NORMAL Test 12/15/16 06:14 White Blood Count 10.3 TH/MM3 Red Blood Count 5.05 MIL/MM3 Hemoglobin 15.4 GM/DL Hematocrit 45.5 % Mean Corpuscular Volume 90.0 FL Mean Corpuscular Hemoglobin 30.6 PG Mean Corpuscular Hemoglobin Concent 34.0 % Red Cell Distribution Width 13.3 % Platelet Count 295 TH/MM3 Mean Platelet Volume 8.0 FL Neutrophils (%) (Auto) 59.3 % Lymphocytes (%) (Auto) 31.4 % Monocytes (%) (Auto) 6.4 % Eosinophils (%) (Auto) 2.8 % Basophils (%) (Auto) 0.1 % Neutrophils # (Auto) 6.1 TH/MM3 Lymphocytes # (Auto) 3.2 TH/MM3 Monocytes # (Auto) 0.7 TH/MM3 Eosinophils # (Auto) 0.3 TH/MM3 Basophils # (Auto) 0.0 TH/MM3 CBC Comment DIFF FINAL Differential Comment Blood Urea Nitrogen 19 MG/DL Creatinine 0.85 MG/DL Random Glucose 81 MG/DL Total Protein 7.3 GM/DL Albumin 3.1 GM/DL Calcium Level 8.7 MG/DL Phosphorus Level 3.3 MG/DL Magnesium Level 2.4 MG/DL Alkaline Phosphatase 63 U/L Aspartate Amino Transf (AST/SGOT) 10 U/L Alanine Aminotransferase (ALT/SGPT) 24 U/L Total Bilirubin 0.4 MG/DL Sodium Level 137 MEQ/L Potassium Level 4.1 MEQ/L Chloride Level 101 MEQ/L Carbon Dioxide Level 30.5 MEQ/L Anion Gap 6 MEQ/L Estimat Glomerular Filtration Rate 97 ML/MIN Imaging Last Impressions Chest X-Ray 12/14/16 0600 Signed Impressions: Service Date/Time: Wednesday, December 14, 2016 05:11 - CONCLUSION: Normal examination. Obed Guajardo Jr., MD CT Angiography 12/07/16 0000 Signed Impressions: Service Date/Time: Wednesday, December 07, 2016 10:25 - CONCLUSION: 1. No evidence of pulmonary embolism. 2. Focal patchy opacity within the right lower lobe consistent with probable pneumonia. 3. Thin-walled cavitary lesion within the right lower lobe which is likely benign. 4. Mild aneurysmal dilatation of the ascending thoracic aorta measuring 3.6 cm AP by 3.7 cm transverse Jw Olivares MD Objective Remarks GENERAL: Awake alert and oriented talkative and cooperative in mild distress SKIN: Warm and dry. No obvious rashes HEAD: Atraumatic. Normocephalic. EYES: Pupils equal and round. No scleral icterus. No injection or drainage. Extraocular muscles intact ENT: No nasal bleeding or discharge. Mucous membranes pink and moist. Tongue is midline NECK: Trachea midline. No JVD. Neck is supple CARDIOVASCULAR: Regular rate and rhythm. S1-S2 no S3 or S4 no heave or thrill or rub or gallop RESPIRATORY: No accessory muscle use. Coarse breath sounds and rhonchi is bilaterally scattered wheezes. Breath sounds equal bilaterally. GASTROINTESTINAL: Abdomen soft, non-tender, nondistended. Hepatic and splenic margins not palpable. MUSCULOSKELETAL: Extremities without clubbing, cyanosis, or edema. No obvious deformities. NEUROLOGICAL: Awake and alert. No obvious cranial nerve deficits. Motor grossly within normal limits. Five out of 5 muscle strength in the arms and legs. Normal speech. PSYCHIATRIC: Appropriate mood and affect; insight and judgment normal. Procedures None Medications and IVs Current Medications Methylprednisolone Sodium Succinate (SoluMEDROL INJ) 125 mg ONCE ONCE IVP Last administered on 12/07/16 09:26; Start 12/07/16 at 09:15; Stop 12/07/16 at 09:16; Status DC Albuterol/ Ipratropium (Duoneb Neb) 1 ampule Q15M INH Last administered on 12/07 09:25; Start 12/07/16 at 09:15; Stop 12/07/16 at 09:46; Status DC Sodium Chloride (NS Flush) 2 ml UNSCH PRN IVF FLUSH AFTER USING IV ACCESS Last administered on 12/11/16 03:43; Start 12/07/16 at 09:15; Stop 12/13/16 at 21:04 ; Status DC Budesonide (Pulmicort Respule Neb) 0.5 mg ONCE ONCE NEB Last administered on 09:25; Start 12/07/16 at 09:15; Stop 12/07/16 at 09:16; Status DC Azithromycin 500 mg/Sodium Chloride 250 ml @ 250 mls/hr ONCE ONCE IV Last administered on 12/07/16 10:41; Start 12/07/16 at 10:15; Stop 12/07/16 at 11:14 ; Status DC Iohexol (Omnipaque 350 Inj) 75 ml STK-MED ONCE IVCONTRAST Last administered on 12/07/16 10:28; Start 12/07/16 at 10:28; Stop 12/07/16 at 10:29; Status DC Sodium Chloride 1,000 ml @ 999 mls/hr BOLUS ONCE IV Last administered on 12/07 11:05; Start 12/07/16 at 11:00; Stop 12/07/16 at 12:00; Status DC Ceftriaxone Sodium 2000 mg/ Sodium Chloride 100 ml @ 200 mls/hr ONCE STAT IV Last administered on 12/07/16 11:05; Start 12/07/16 at 10:49; Stop 12/07/16 at 11:18; Status DC Sodium Chloride (NS Flush) 2 ml UNSCH PRN IV FLUSH FLUSH AFTER USING IV ACCESS ; Start 12/07/16 at 13:45 Sodium Chloride (NS Flush) 2 ml BID IV FLUSH Last administered on 12/14/16 09: 16; Start 12/07/16 at 21:00 Ceftriaxone Sodium 1000 mg/ Sodium Chloride 100 ml @ 200 mls/hr Q24H IV Last administered on 12/13/16 13:58; Start 12/08/16 at 11:00; Stop 12/14/16 at 12:04 ; Status DC Azithromycin (Zithromax) 500 mg DAILY PO Last administered on 12/14/16 09:17; Start 12/08/16 at 09:00; Stop 12/14/16 at 12:04; Status DC Tuberculin PPD (Ppd Inj) 5 units ONCE ONCE I-DERMAL Last administered on 18:42; Start 12/07/16 at 13:45; Stop 12/07/16 at 15:14; Status DC Ondansetron HCl (Zofran Inj) 4 mg Q6H PRN IV NAUSEA; Start 12/07/16 at 13:45 Guaifenesin/ Dextromethorphan (Robitussin Dm 200-20 Mg/10 ml Liq) 10 ml Q4H PRN PO COUGH; Start 12/07/16 at 13:45 Enoxaparin Sodium (Lovenox Inj) 40 mg Q24H SQ ; Start 12/07/16 at 13:45; Stop at 14:27; Status DC Methylprednisolone Sodium Succinate (SoluMEDROL INJ) 40 mg Q6HR IV PUSH Last administered on 12/09/16 11:41; Start 12/07/16 at 18:00; Stop 12/09/16 at 13:46 ; Status DC Albuterol/ Ipratropium (Duoneb Neb) 1 ampule Q6HR WHILE AWAKE NEB NEB Last administered on 12/11/16 19:46; Start 12/07/16 at 20:00; Stop 12/11/16 at 19:59 ; Status DC Albuterol/ Ipratropium (Duoneb Neb) 1 ampule Q4HR NEB PRN NEB SOB/WHEEZING Last administered on 12/07/16 16:18; Start 12/07/16 at 14:30 Miscellaneous Information (Skin Test Result) 1 Q24H .XX Last administered on 18:19; Start 12/09/16 at 18:42; Stop 12/09/16 at 18:43; Status DC Ibuprofen (Motrin) 600 mg ONCE ONCE PO Last administered on 12/09/16 13:56; Start 12/09/16 at 12:45; Stop 12/09/16 at 12:46; Status DC Fluticasone Propionate (Flonase Jaime Spr) 2 spray DAILY NASAL Last administered on 12/10/16 09:00; Start 12/09/16 at 15:00 Methylprednisolone Sodium Succinate (SoluMEDROL INJ) 40 mg Q8H IV PUSH Last administered on 12/11/16 11:22; Start 12/09/16 at 20:00; Stop 12/11/16 at 13:22 ; Status DC Lactobacillus Acidophilus (Lactinex Pkt) 1 gm TID PO Last administered on 18:19; Start 12/10/16 at 18:00 Prednisone (Deltasone) 40 mg DAILY PO Last administered on 12/14/16 09:16; Start 12/12/16 at 09:00 Levothyroxine Sodium (Synthroid) 25 mcg ONCE ONCE PO Last administered on 12/13 15:20; Start 12/13/16 at 14:00; Stop 12/13/16 at 14:12; Status DC Levothyroxine Sodium (Synthroid) 25 mcg DAILY@0600 PO Last administered on 12/15 06:01; Start 12/14/16 at 06:00 Acetaminophen (Tylenol) 650 mg Q4H PRN PO headaches Last administered on 20:14; Start 12/13/16 at 21:00 Urinary Catheter: No Vascular Central Line Catheter: No A/P Problem List: (1) Pneumonia ICD Code: J18.9 - Pneumonia, unspecified organism Status: Acute (2) Homeless ICD Code: Z59.0 - Homelessness (3) Lives in homeless [facility] ICD Code: Z59.0 - Homelessness (4) Tobacco abuse ICD Code: Z72.0 - Tobacco use Assessment and Plan Sepsis/PNA: Patient presented with tachycardia with a heart rate in the 110s, mild leukocytosis with a WBC of 12.6, lactic acid of 2.3. Source: PNA w cavitary lesion. CTA showed no PE however patient does have a cavitary lesion right lower lobe and opacity in the right lower lobe concerning for pneumonia. Patient required a nonrebreather at 10 L in the ED. He received a dose of IV Rocephin/azithromycin/IV Solu-Medrol in the emergency room. His O2 sat improved and now is on 2 L nasal cannula continue to titrate oxygen down. Will perform Walk test to see if he requires oxygen. ABG obtained within normal limits with a pH of 7.39, PCO2 41 and HCO3 24. now on IV Rocephin daily and by mouth azithromycin. Encourage use of incentive spirometry every hour while awake. ID following and recommended continuing abx and treat x 7 days. blood cx neg x 2 day. Influenza ordered but not available. PPD ordered. M tuberculosis DNA/PCR neg. sputum cultures w heavy normal antonio but not yet finalized. I have reached to Dr. Ramos and will wait for final recs for possible discharge. Asthma exacerbation/hypoxia/respiratory failure: Pt did require a non rebreather at 10L initially now has been switched to 4L. Still having coughing spells.change Solu-Medrol 40 mg IV to every 8 hours transition to po prednisone . continue scheduled DuoNeb treatments every 6 hours and when necessary. continue supplemental oxygen. WEANED OFF OXYGEN Tobaccoism: counseled to quit. NEEDS TO CONTINUE USING THE INCENTIVE SPIROMETRY SINCE HE CANNOT EASILY GO HOME ON OXYGEN WEANED OFF OXYGEN DVT proph: encourage ambulation/SCD HYPOTHYROIDISM 25MCG PO DAILY SYNTHROID Discharge Planning Start po prednisone in AM awaiting final recs from ID walk test today CM to assist w d/c planning Discharge to home today and will write prescriptions switch to by mouth medications Discussed with case management discussed with patient discussed with regional sales consultant Planning NEXT 24 TO 48 HOURS Problem Qualifiers (1) Pneumonia: Qualified Codes: J18.1 - Lobar pneumonia, unspecified organism Jamison Hernandez DO Dec 15, 2016 10:02
[2016-12-15] MEDS ORDERED: DEXT10SY2 PO (10:06)
[2016-12-15] MEDS ORDERED: LACTG PO (10:06)
[2016-12-15] MEDS ORDERED: PRED10PA2 PO (10:06)
[2016-12-15] MEDS ORDERED: FLUT50SP NASAL (10:06)
[2016-12-15] MEDS ORDERED: LEVO25TA4 PO (10:06)
[2016-12-15] MEDS ORDERED: VENTAER INH (10:06)
--- NOTE | 2016-12-15 10:09 | HHI.DS ---
Discharge Summary Admission Date Dec 07, 2016 at 11:52 Discharge Date: Dec 15, 2016 Admitting Diagnosis PNEUMONIA, SEPSIS (1) Pneumonia ICD Code: J18.9 - Pneumonia, unspecified organism Diagnosis: Principal Status: Acute (2) Homeless ICD Code: Z59.0 - Homelessness Diagnosis: Secondary (3) Lives in homeless [facility] ICD Code: Z59.0 - Homelessness Diagnosis: Secondary (4) Tobacco abuse ICD Code: Z72.0 - Tobacco use Diagnosis: Secondary Procedures None Brief History - From Admission 46-year-old male with past medical history of asthma presents today with worsening shortness of breath, cough, fevers and chills. Patient states that it all started yesterday morning. He started coughing and thought he had a cold. He states he is living in a [facility] at this time and there are couple times with similar symptoms. He has a history of asthma. He started wheezing and having chest tightness. He never checked his temperature however he was very hot and he had chills. He is unable to cough up sputum however he has a dry cough. He gets a headache with never he coughs however it's improved. Denies any nausea vomiting, abdominal pain, sore throat or runny nose. Otherwise, he has no other complaints. CBC/BMP: 12/15/16 0614 12/15/16 0614 Significant Findings Laboratory Tests Test 12/13/16 08:56 12/13/16 09:06 12/14/16 05:26 12/14/16 07:26 Myelocytes 3 % (0-0) 1 % (0-0) Toxic Vacuolation PRESENT (NONE SEEN) Blood Urea Nitrogen 20 MG/DL (7-18) 22 MG/DL (7-18) Albumin 3.1 GM/DL (3.4-5.0) 2.9 GM/DL (3.4-5.0) Aspartate Amino Transf (AST/SGOT) 6 U/L (15-37) 9 U/L (15-37) Sodium Level 134 MEQ/L (136-145) Thyroid Stimulating Hormone 3rd Gen 3.830 uIU/ML (0.358-3.740) Metamyelocytes 2 % (0-1) Test 12/15/16 06:14 Blood Urea Nitrogen 19 MG/DL (7-18) Albumin 3.1 GM/DL (3.4-5.0) Aspartate Amino Transf (AST/SGOT) 10 U/L (15-37) Imaging Last Impressions Chest X-Ray 12/14/16 0600 Signed Impressions: Service Date/Time: Wednesday, December 14, 2016 05:11 - CONCLUSION: Normal examination. Obed Guajardo Jr., MD CT Angiography 12/07/16 0000 Signed Impressions: Service Date/Time: Wednesday, December 07, 2016 10:25 - CONCLUSION: 1. No evidence of pulmonary embolism. 2. Focal patchy opacity within the right lower lobe consistent with probable pneumonia. 3. Thin-walled cavitary lesion within the right lower lobe which is likely benign. 4. Mild aneurysmal dilatation of the ascending thoracic aorta measuring 3.6 cm AP by 3.7 cm transverse Jw Olivares MD PE at Discharge GENERAL: Awake alert and oriented talkative and cooperative in mild distress SKIN: Warm and dry. No obvious rashes HEAD: Atraumatic. Normocephalic. EYES: Pupils equal and round. No scleral icterus. No injection or drainage. Extraocular muscles intact ENT: No nasal bleeding or discharge. Mucous membranes pink and moist. Tongue is midline NECK: Trachea midline. No JVD. Neck is supple CARDIOVASCULAR: Regular rate and rhythm. S1-S2 no S3 or S4 no heave or thrill or rub or gallop RESPIRATORY: No accessory muscle use. Coarse breath sounds and rhonchi is bilaterally scattered wheezes. Breath sounds equal bilaterally. GASTROINTESTINAL: Abdomen soft, non-tender, nondistended. Hepatic and splenic margins not palpable. MUSCULOSKELETAL: Extremities without clubbing, cyanosis, or edema. No obvious deformities. NEUROLOGICAL: Awake and alert. No obvious cranial nerve deficits. Motor grossly within normal limits. Five out of 5 muscle strength in the arms and legs. Normal speech. PSYCHIATRIC: Appropriate mood and affect; insight and judgment normal. Hospital Course 46-year-old male with past medical history of asthma presents today with worsening shortness of breath, cough, fevers and chills. Patient states that it all started yesterday morning. He started coughing and thought he had a cold. He states he is living in a [facility] at this time and there are couple times with similar symptoms. He has a history of asthma. He started wheezing and having chest tightness. He never checked his temperature however he was very hot and he had chills. He is unable to cough up sputum however he has a dry cough. He gets a headache with never he coughs however it's improved. Denies any nausea vomiting, abdominal pain, sore throat or runny nose. Otherwise, he has no other complaints. Patient has been treated with steroids and breathing treatments as well as Mucinex and antibiotics Has completed his antibiotics and can be discharged to home today Pt Condition on Discharge: Good Discharge Disposition: Discharge Home Discharge Time: > 30 minutes Discharge Instructions DIET: Follow Instructions for: Heart Healthy Diet Speech Therapy-Diet Recommends: Regular Activities you can perform: Regular-No Restrictions Follow up Referrals: PCP Follow-up - 1 Week New Medications: Albuterol 18 GM Inh (Ventolin Hfa 18 GM Inh) 90 Mcg/Act Aer 2 PUFF INH Q6H PRN for SHORTNESS OF BREATH, #1 INHALER 0 Refills Prednisone (48) 10 mg tab Dose Pack (Prednisone (48) 10 mg tab Dose Pack) 10 Mg Dspk 10 MG PO DIRECTED for Inflammation, #1 DSPK 0 Refills Take as directed with food Dextromethorphan-Guaifenesin (Dextromethorphan/Guaifene 10-100 mg/5Ml) 100 Mg- 10 Mg/5 Ml Syp 10 ML PO Q4H PRN for COUGH, #600 ML Fluticasone Nasal [place] (Fluticasone Nasal [place]) 50 Mcg/Act Naspr 2 SPRAY NASAL DAILY for Breathing Treatment, #1 BOTTLE 50 mcg/spray Lactobacillus Acidophilus (Floranex) 1 Gm Pkt 1 GM PO TID for INFECTION, #90 PACKET Levothyroxine (Levothyroxine) 25 Mcg Tab 25 MCG PO DAILY@0600 for Thyroid Supplement, #30 TAB Jamison Hernandez DO Dec 15, 2016 10:09
== END 2016-12-15 13:28 | disposition home or self-care (01) | DRG 871 ==
LOC: NEPD 08:50 → NEDA 11:52 → HOCB 15:15 → N07A 17:39
PROVIDERS: ADMIT Hospitalist; ATTEND Hospitalist
DX: A41.9 Sepsis, unspecified organism (principal); J96.91 Respiratory failure, unspecified with hypoxia; J18.9 Pneumonia, unspecified organism; J45.901 Unspecified asthma with (acute) exacerbation; J98.4 Other disorders of lung; F17.210 Nicotine dependence, cigarettes, uncomplicated; E03.9 Hypothyroidism, unspecified; R65.20 Severe sepsis without septic shock; Z59.0 Homelessness
CPT/HCPCS: 36600; 71010; 71275; 80048; 80053; 82550; 82552; 82805; 83036; 83605; 83735; 84100; 84439; 84443; 84484; 85007; 85025; 85027; 85610; 85730; 87040; 87070; 87205; 87556; 87798; 93005; 94150; 94620; 94640; 94664; 96365; 96367; 96375; J0456; J0696; J2920; J2930; J7030; J7050; J7512; J7626; Q9967